=== PATIENT | female | born 1970 | race Caucasian/White ===

== ENCOUNTER → 2020-04-20 09:20 | Outpatient (CLI) | payer MEDICAID, SELFPAY ==
--- NOTE | 2020-04-20 09:25 | RAD_ITS ---
STUDY: X-RAY CHEST REASON FOR EXAM: Female, 49 years old. PATIENT IS STILL SOB. POSITIVE FOR COVID SEVERAL MONTHS AGO. TECHNIQUE: 2 views COMPARISON: None. FINDINGS: The lungs are clear and expanded. There is no demonstrated pleural abnormality. Normal size heart. Normal mediastinum and nayan. Normal visualized pulmonary arteries. Normal visualized aortic arch and descending thoracic aorta. Normal visualized thoracic spine. Normal visualized ribs, clavicles, and shoulders. There is no demonstrated abnormality of the visualized soft tissue structures of the upper abdomen. RAD/Chest PA and Lateral IMPRESSION: Normal x-ray examination of the chest. Electronically Signed: Bea Martinez MD at 20:24 EDT , Service support ,
[2020-04-20 12:29] LABS: Absolute Lymphocyte Count 2.25 X10^3/uL (0.83-4.51); Absolute Neutrophil Count 5.5 X10^3/uL (2.0-7.7); Basophil# 0.06 X10^3/uL; Basophil% 0.7 % (0-1); Eosinophil# 0.12 X10^3/uL; Eosinophils% 1.4 % (0-5); Hematocrit 44.3 % (37-47); Hemoglobin 13.9 g/dL (12.0-15.0); Lymphocyte # 2.25 X10^3/ul (4.0); Lymphocyte % 26.5 % (19-41); Mean Corp Hgb Conc 31.4 g/dL (32-36); Mean Corpuscular Hgb 28.4 pg (27.0-32.0); Mean Corpuscular Volume 90.6 fL (81-99); Mean Platelet Vol. 10.2 fl (6.2-12.0); Monocyte# 0.56 X10^3/uL; Monocyte% 6.6 % (0-10); NRBC Flagged by Analyzer 0 % (0-5); Neutrophil # 5.46 X10^3/uL (2.7-7.7); Neutrophil % 64.4 % (47-70); Platelet Count 337 K/mm3 (150-450); RBC Distribution Width CV 12.7 % (11.6-14.6); RBC Distribution Width SD 41.6 fl (35.1-43.9); Red Blood Count 4.89 M/mm3 (4.2-5.4); White Blood Count 8.5 K/mm3 (4.4-11.0)
[2020-04-20 12:51] LABS: ALB/GLOB Ratio 1.1 RATIO (0.9-2.4); AST(SGOT) 28 U/L (15-37); Alanine Aminotransfer ALT/SGPT 65 U/L (13-56); Alkaline Phosphatase 100 U/L (45-117); Anion Gap 4 (5-15); BUN 12 mg/dL (7-18); BUN/Creat Ratio 15.2 RATIO (10-20); Calcium,Total 9.4 mg/dL (8.5-10.1); Chloride 105 mmol/L (98-107); Creatinine, Serum 0.79 mg/dL (0.55-1.02); EST Glomerular Filtration Rate 82 mL/min (>60); Est Glom Filt Rate - Afr Amer 99 mL/min (>60); Globulin 3.6 g/dL (2.2-4.2); Glucose 99 mg/dL (74-106); Potassium 3.9 mmol/L (3.5-5.1); Protein, Total 7.6 g/dL (6.4-8.2); Sodium Level 139 mmol/L (136-145); T4 Free Direct 0.95 ng/dL (0.76-1.46); Thyroid Stim Hormone (TSH) 1.94 uIU/mL (0.358-3.74)
== END ==
PROVIDERS: PCP Family Medicine; Referring Provider Family Medicine; Visit Provider Family Medicine
DX: U07.1 COVID-19 (principal); I10 Essential (primary) hypertension; E78.5 Hyperlipidemia, unspecified; L65.9 Nonscarring hair loss, unspecified; R06.00 Dyspnea, unspecified
CPT/HCPCS: 36415; 71046; 80053; 84439; 84443; 85025

== ENCOUNTER → 2020-06-17 13:27 | Outpatient (CLI) | payer MEDICAID, SELFPAY ==
[2020-06-17 15:50] LABS: Anion Gap 6 (5-15); BUN 14 mg/dL (7-18); BUN/Creat Ratio 20.7 RATIO (10-20); Calcium,Total 8.9 mg/dL (8.5-10.1); Chloride 104 mmol/L (98-107); Creatinine, Serum 0.68 mg/dL (0.55-1.02); EST Glomerular Filtration Rate 97 mL/min (>60); Est Glom Filt Rate - Afr Amer 118 mL/min (>60); Glucose 103 mg/dL (74-106); Potassium 3.4 mmol/L (3.5-5.1); Sodium Level 138 mmol/L (136-145)
== END ==
PROVIDERS: PCP Family Medicine; Visit Provider Family Medicine
DX: I10 Essential (primary) hypertension (principal)
CPT/HCPCS: 36415; 80048

== ENCOUNTER → 2020-10-28 09:32 | Outpatient (CLI) | payer MEDICAID, SELFPAY ==
[2020-10-28 12:18] LABS: Absolute Lymphocyte Count 2.18 X10^3/uL (0.83-4.51); Basophil# 0.05 X10^3/uL; Basophil% 0.6 % (0-1); Eosinophils% 1.3 % (0-5); Hematocrit 43.2 % (37-47); Hemoglobin 13.4 g/dL (12.0-15.0); Lymphocyte # 2.18 X10^3/ul (4.0); Lymphocyte % 27.7 % (19-41); Mean Corpuscular Volume 90.4 fL (81-99); Mean Platelet Vol. 10.2 fl (6.2-12.0); Monocyte% 6.4 % (0-10); NRBC Flagged by Analyzer 0 % (0-5); Neutrophil # 5.01 X10^3/uL (2.7-7.7); Neutrophil % 63.6 % (47-70); Platelet Count 348 K/mm3 (150-450); RBC Distribution Width CV 12.9 % (11.6-14.6); RBC Distribution Width SD 42.7 fl (35.1-43.9); Red Blood Count 4.78 M/mm3 (4.2-5.4); White Blood Count 7.9 K/mm3 (4.4-11.0)
[2020-10-28 12:30] LABS: Anion Gap 5 (5-15); BUN 22 mg/dL (7-18); BUN/Creat Ratio 27.6 RATIO (10-20); Calcium,Total 9.5 mg/dL (8.5-10.1); Chloride 102 mmol/L (98-107); Cholesterol 305 mg/dL (200); EST Glomerular Filtration Rate 81 mL/min (>60); Est Glom Filt Rate - Afr Amer 98 mL/min (>60); Glucose 98 mg/dL (74-106); High Density Lipoprotein 54 mg/dL; Potassium 3.7 mmol/L (3.5-5.1); Sodium Level 137 mmol/L (136-145); Triglycerides 286 mg/dL; Very Low Density Lipoprotein 57 mg/dL (5-40)
[2020-10-28 13:03] LABS: Hemoglobin A1c 5.4 % (3.8-5.6)
== END ==
PROVIDERS: PCP Family Medicine; Visit Provider Family Medicine
DX: I10 Essential (primary) hypertension (principal); E78.5 Hyperlipidemia, unspecified; R73.01 Impaired fasting glucose
CPT/HCPCS: 36415; 80048; 80061; 83036; 85025

== ENCOUNTER 2021-07-07 19:24 | Inpatient (IN) | payer MEDICAID, SELFPAY ==
[2021-07-07 19:25] VITALS: BP 157/99; PULSE 92; RESP 24; TEMP 36.4; O2SAT 100; BMI 24.7
--- NOTE | 2021-07-07 19:28 | EKG12_ITS ---
Test Reason : CHEST PAIN Blood Pressure : / mmHG Vent. Rate : 080 BPM Atrial Rate : 080 BPM P-R Int : 162 ms QRS Dur : 094 ms QT Int : 402 ms P-R-T Axes : 044 -04 016 degrees QTc Int : 463 ms Normal sinus rhythm Normal ECG Confirmed by BRISA PEARSON, BRENDAN ([id number]), metropolitan editor CLINTON LOTT ([id number]) on 07/10/2021 11:48:17 AM Referred By: FRANCES Confirmed By:BRENDAN LEDEZMA MD
[2021-07-07 19:34] LABS: Absolute Lymphocyte Count 4.12 X10^3/uL (0.83-4.51); Absolute Neutrophil Count 8.4 X10^3/uL (2.0-7.7); Basophil# 0.06 X10^3/uL; Basophil% 0.4 % (0-1); Eosinophil# 0.18 X10^3/uL; Eosinophils% 1.3 % (0-5); Hematocrit 40.4 % (37-47); Hemoglobin 13.1 g/dL (12.0-15.0); Lymphocyte # 4.12 X10^3/ul (0.83-4.51); Lymphocyte % 30.4 % (19-41); Mean Corp Hgb Conc 32.4 g/dL (32-36); Mean Corpuscular Hgb 28.2 pg (27.0-32.0); Mean Corpuscular Volume 86.9 fL (81-99); Mean Platelet Vol. 9.8 fl (6.2-12.0); Monocyte# 0.81 X10^3/uL; NRBC Flagged by Analyzer 0 % (0-5); Neutrophil # 8.35 X10^3/uL (2.7-7.7); Neutrophil % 61.5 % (47-70); Platelet Count 389 K/mm3 (150-450); RBC Distribution Width CV 12.7 % (11.6-14.6); RBC Distribution Width SD 40.5 fl (35.1-43.9); Red Blood Count 4.65 M/mm3 (4.2-5.4); White Blood Count 13.6 K/mm3 (4.4-11.0)
[2021-07-07 19:40] LABS: Prothrombin Time (Protime)PT. 12.1 SECONDS (11.7-14.9)
--- NOTE | 2021-07-07 19:40 | RAD_ITS ---
INDICATION: chest pain EXAMINATION/TECHNIQUE: X-RAY - XR Chest 1 View COMPARISON: 04/20/2020. FINDINGS: The lungs are clear. The cardiomediastinal silhouette is unremarkable. No pleural effusion or pneumothorax. No acute osseous abnormalities. RAD/Chest 1 View (Portable) IMPRESSION: No acute radiographic abnormalities. Electronically Signed: Scott Zavala MD at 20:29 EST Tel , Service support ,
--- NOTE | 2021-07-07 19:46 | ED.VIS.CHEST ---
HPI History of Present Illness Chief Complaint: Chest Pain Narrative Narrative: Patient presents with epigastric substernal chest pain that started a few hours ago. She states she had it a few days ago but it resolved. She has been moving things and holding children. It is the pain that she cannot describe. She states it just hurts her. Sometimes is worse with movement. She denies any nausea or vomiting. No diaphoresis. No shortness of breath. No leg swelling. No other symptoms. Past medical history includes hypertension. No family history of myocardial infarction at an early age. PFSH PFS Home Medications amlodipine 5 mg PO DAILY 07/07/21 [History Last Taken Unknown] lisinopril-hydrochlorothiazide 1 tab PO DAILY 07/07/21 [History Last Taken Unknown] Allergy/AdvReac Type Severity Reaction Status Date / Time strawberry Allergy Hives Verified 07/07/21 19:29 Social History Smoking Status: Never smoker ROS ROS ED ROS Narrative Constitutional: No fever, no chills. HEENT: No sore throat. No neck pain. No loss of vision. No rhinorrhea. Cardiovascular: Positive epigastric to substernal chest pain. No palpitations. No pedal edema. Respiratory: No cough, no shortness of breath. Abdominal: No abdominal pain. No nausea. No vomiting. Genitourinary: No dysuria. No hematuria. Musculoskeletal: No myalgias. No arthralgias. Neurologic: No headaches. No dizziness. No lightheadedness. Skin: No rash. No change in color. Psychiatric: No depression. No anxiety. EXAM Physical Exam Narrative Exam Narrative: Afebrile. Vital signs noted. HEENT: Normocephalic. Atraumatic. PERRL, EOMI. Neck soft and supple. No point tenderness or step off. Cardiovascular: Regular rate and rhythm. No murmurs, rubs, or gallops appreciated. Positive pain with movement of arms and especially torso. No crepitance. Respiratory: No tachypnea. Lungs clear to auscultation bilaterally. Gastrointestinal: Abdomen soft, nontender, with normoactive bowel sounds. No rebound or guarding. Neurological: Awake. Alert. Nonfocal, nonlateralizing. Skin: No rash. Normal color. No pallor. Musculoskeletal: No pedal edema. Full range of motion extremities. Const Vital Signs: 07/07/21 19:25 07/07/21 19:34 07/07/21 19:58 Temperature 97.6 F L Temperature Source Temporal Pulse Rate 92 Respiratory Rate 24 H Blood Pressure 157/99 H Blood Pressure Mean 118 Pulse Ox 100 Oxygen Delivery Method Room Air Nasal Cannula Nasal Cannula Oxygen Flow Rate (L/min) 2 2 07/07/21 22:11 Temperature 97.9 F Temperature Source Temporal Pulse Rate 72 Respiratory Rate 18 Blood Pressure 130/93 H Blood Pressure Mean 105 Pulse Ox 95 Oxygen Delivery Method Room Air Oxygen Flow Rate (L/min) MDM MDM MDM Narrative Medical decision making narrative: Chest pain work-up was pursued. EKG demonstrates normal sinus rhythm at 80 bpm without ectopy or acute ST changes. She will be administered aspirin. Her CBC shows elevated white count of 13.6, hemoglobin 13.1, platelet count 389. Coagulation studies are negative. She has a hypokalemia of 3.1 which was replaced IV. BUN slightly elevated 23. High-sensitivity troponin normal at 19. She did have an elevated D-dimer of 1.3, but CTA shows no evidence of pulmonary embolism. There may be a left lower lobe pneumonia, but she is not showing clinical manifestations of this. She does not have a fever or cough. I will defer antibiotics currently. She does have an elevated lipase above 11,000. LFTs were obtained and are negative. I did obtain an ultrasound of her gallbladder which shows no evidence of gallstones, common bile duct is normal at 6 mm. She did not get any pain relief with a dose of morphine. She was administered Dilaudid 1 mg intravenously and her is resting comfortably. Given her elevated lipase and hypokalemia, she was made n.p.o. it was administered IV fluids. Patient was discussed with hospitalist, Dr. Cloud, who will admit her to the medical surgical floor. She is in stable condition. He did request that step triglycerides be obtained as well. Lab Data Attestation: I reviewed the patient's lab results. Labs: Laboratory Results - last 24 hr 07/07/21 07/07/21 07/07/21 19:27 19:27 19:27 WBC 13.6 H RBC 4.65 Hgb 13.1 Hct 40.4 MCV 86.9 MCH 28.2 MCHC 32.4 RDW Std Deviation 40.5 RDW Coeff of Marti 12.7 Plt Count 389 MPV 9.8 Immature Gran % (Auto) 0.400 Neut % (Auto) 61.5 Lymph % (Auto) 30.4 [place] % (Auto) 6.0 Eos % (Auto) 1.3 Baso % (Auto) 0.4 Absolute Neuts (auto) 8.4 H Absolute Lymphs (auto) 4.12 Nucleated RBC % 0 PT 12.1 INR 1.0 D-Dimer Quant (PE/DVT) Sodium 139 Potassium 3.1 L Chloride 106 Carbon Dioxide 24.0 Anion Gap 9 BUN 23 H Creatinine 0.77 Estim Creat Clear Calc 64.49 Est GFR (MDRD) Af Amer 102 Est GFR (MDRD) Non-Af 84 BUN/Creatinine Ratio 30.0 H Glucose 140 H Calcium 9.6 Total Bilirubin Direct Bilirubin AST ALT Alkaline Phosphatase Troponin I High Sens 19 Total Protein Albumin Globulin Lipase 07/07/21 07/07/21 07/07/21 19:27 19:27 19:27 WBC RBC Hgb Hct MCV MCH MCHC RDW Std Deviation RDW Coeff of Marti Plt Count MPV Immature Gran % (Auto) Neut % (Auto) Lymph % (Auto) [place] % (Auto) Eos % (Auto) Baso % (Auto) Absolute Neuts (auto) Absolute Lymphs (auto) Nucleated RBC % PT INR D-Dimer Quant (PE/DVT) 1.32 H* Sodium Potassium Chloride Carbon Dioxide Anion Gap BUN Creatinine Estim Creat Clear Calc Est GFR (MDRD) Af Amer Est GFR (MDRD) Non-Af BUN/Creatinine Ratio Glucose Calcium Total Bilirubin 0.50 Direct Bilirubin 0.27 AST 55 H ALT 54 Alkaline Phosphatase 102 Troponin I High Sens Total Protein 7.6 Albumin 3.9 Globulin 3.7 Lipase 18006 H Radiography Diagnostic Testing: Clinical Impression(s) from Imaging Studies Chest X-Ray 07/07/21 19:40 IMPRESSION: No acute radiographic abnormalities. Electronically Signed: Scott Zavala MD at 20:29 EST Tel , Service support , Gallbladder Ultrasound 07/07/21 20:36 IMPRESSION: Fatty liver. There is pericholecystic fluid. No gallstones visualized. Electronically Signed: Pacheco Mckeon MD at 21:37 EST , Service support , Chest CTA 07/07/21 21:11 IMPRESSION: 1. No demonstrated pulmonary embolism or arterial dissection. 2. There is a left lower lobe pneumonia. Electronically Signed: Pacheco Mckeon MD at 21:38 EST , Service support , Discharge Plan Dx/Rx/DC Orders Clinical Impression: Acute pancreatitis, Acute hypokalemia, Chest pain Disposition Disposition: Acute Care [facility]
[2021-07-07] MEDS: 0.9% Normal Saline 1,000 ML 1000 ML IV (19:52)
[2021-07-07] MEDS: Aspirin 81 MG TAB.CHEW 324 MG PO (19:52)
[2021-07-07] MEDS: Morphine 4 MG/ML Syringe IV (19:56)
[2021-07-07 20:06] LABS: Anion Gap 9 (5-15); BUN 23 mg/dL (7-18); Calcium,Total 9.6 mg/dL (8.5-10.1); Chloride 106 mmol/L (98-107); Creatinine, Serum 0.77 mg/dL (0.55-1.02); EST Glomerular Filtration Rate 84 mL/min (>60); Est Glom Filt Rate - Afr Amer 102 mL/min (>60); Estimated Creatinine Clearance 64.49 ml/min; Glucose 140 mg/dL (74-106); Potassium 3.1 mmol/L (3.5-5.1); Sodium Level 139 mmol/L (136-145); Troponin-I HS 19 pg/mL (3.0-54.0)
[2021-07-07 20:12] LABS: Lipase 11527 U/L (73-393)
[2021-07-07 20:15] LABS: D-Dimer Quantitative (DVT/PE) 1.32 FEU/ug/m (0.27-0.49)
--- NOTE | 2021-07-07 20:36 | US_ITS ---
STUDY: ABDOMINAL ULTRASOUND - RIGHT UPPER QUADRANT REASON FOR VISIT: Female, 51 years old. ABDOMEN PAIN SEVERE ABD PAIN WITH NAUSEA TECHNIQUE: Ultrasound evaluation of the right upper quadrant was performed with real-time and static domínguez-scale imaging. TECHNICAL QUALITY: Adequate. COMPARISON: None. FINDINGS: Liver: There is increased echogenicity consistent with fatty infiltration. The bile ducts are within normal limits. There is hepatic color flow. The direction of portal flow is hepatopetal. There is no demonstrated mass lesion. Gallbladder: Normal distended gallbladder. The gallbladder wall measures 3 mm. There is a negative sonographic Umana''s sign. There is pericholecystic fluid. There are no gallstones. Common Bile Duct (C.B.D.): The common bile duct measures ( in mm): 6 Pancreas: Normal size of the head, body of the pancreas. There is increased echogenicity of the pancreas. There is no demonstrated pancreatic mass or cyst. Right Kidney: Normal size of the right kidney. The right kidney measures 10.3 cm. . Normal renal cortex. There is no demonstrated renal mass or cyst. There is no right hydronephrosis. Aorta: It is not visualized. There is too much overlying bowel gas. . US/Gallbladder IMPRESSION: Fatty liver. There is pericholecystic fluid. No gallstones visualized. Electronically Signed: Pacheco Mckeon MD at 21:37 EST , Service support ,
[2021-07-07] MEDS: HYDROmorphone 1 MG/ML Syringe IV (20:40)
--- NOTE | 2021-07-07 21:11 | CT_ITS ---
EXAM: CT ANGIOGRAPHY CHEST WITHOUT AND WITH INTRAVENOUS CONTRAST CLINICAL INDICATION: elevated D-dimer TECHNIQUE: Helically acquired angiography images were obtained of the chest without and with intravenous contrast. This CT exam was performed using one or more of the following dose reduction techniques: automated exposure control, adjustment of the mA and/or kV according to patient size, and/or use of iterative reconstruction technique. This report was created using [employer] report generation technology. MIP reconstructed images were created and reviewed. CONTRAST: IV 100mL Isovue-370 COMPARISON: None. FINDINGS: PULMONARY ARTERIES: No demonstrated pulmonary embolism or arterial dissection. AORTA: Unremarkable. Normal in caliber. No evidence of dissection. GREAT VESSELS OF AORTIC ARCH: Unremarkable. Normal in caliber. No evidence of dissection. LUNGS AND PLEURAL SPACES: There is a left lower lobe pneumonia. No mass. No pleural effusion or thickening. HEART: Unremarkable. Heart size is normal. No pericardial effusion. No signs of right heart strain, ratio of right ventricle to left ventricle measures less than 1. MEDIASTINUM: Unremarkable. No mediastinal or hilar adenopathy. Esophagus is unremarkable. No hiatal hernia. THYROID: Unremarkable. No thyroid lesions. BONES/JOINTS: There are degenerative findings of the thoracic spine. No suspicious lytic or blastic abnormality. CT/CTA Chest W/WO Contrast IMPRESSION: 1. No demonstrated pulmonary embolism or arterial dissection. 2. There is a left lower lobe pneumonia. Electronically Signed: Pacheco Mckeon MD at 21:38 EST , Service support ,
[2021-07-07 21:43] LABS: AST(SGOT) 55 U/L (15-37); Alanine Aminotransfer ALT/SGPT 54 U/L (13-56); Albumin, Serum 3.9 g/dL (3.2-5.0); Alkaline Phosphatase 102 U/L (45-117); Bilirubin, Direct 0.27 mg/dL (0.00-0.30); Globulin 3.7 g/dL (2.2-4.2); Protein, Total 7.6 g/dL (6.4-8.2)
[2021-07-07] MEDS: Potassium Chloride 10mEq/100mL 10 MEQ/100 ML IV.SOLN. 100 MEQ IV BOLUS ×2 (22:07→23:11)
[2021-07-07 22:11] VITALS: BP 130/93; PULSE 72; RESP 18; TEMP 36.6; O2SAT 95
--- NOTE | 2021-07-07 22:27 | HP.PCM.HOS_ITS ---
HPI - General General Date of Admission: 07/07/21 HPI Narrative NAVEED LEON, is a 51 F with a significant history of hypertension who presents to the emergency department with progressively worsening epigastric pain that started 2 days before presentation. Epigastric pain radiated to her lower chest and into her middle back. She described the pain as sharpness and tightness. Her symptoms aggravates with bending over and walking. She denies any ameliorating factors to the pain. She has nausea without vomiting. She denies any shortness of breath; chills or fever. Of note patient was at a bar 4 days before her symptoms started and she took 4 glasses of sangria drinks. She reported that typically she hardly drinks. [facility] Medical History HTN (hypertension) Home Medications amlodipine 5 mg PO DAILY 07/07/21 [History Last Taken Unknown] lisinopril-hydrochlorothiazide 1 tab PO DAILY 07/07/21 [History Last Taken U nknown] Allergy/AdvReac Type Severity Reaction Status Date / Time strawberry Allergy Hives Verified 07/07/21 19:29 Family History Other Breast cancer Hypertension Surgical History H/O breast biopsy Social History Smoking Status: Never smoker ROS ROS Narrative Constitutional: Denies fever, chills, fatigue, anorexia and change in weight Eyes: Denies blurry vision, change in eye color, change in vision, discharge from eye(s), double vision, erythema, eye pain, loss of vision or other HEENT: Denies abnormal hearing, dysphagia, ear pain, epistaxis, headache(s), hearing loss, nasal congestion, nasal discharge, post nasal drip, sinus pressure, sore throat or other Cardiovascular: Reports chest pain. Denies palpitations. Denies dyspnea on exertion, orthopnea and paroxysmal nocturnal dyspnea Respiratory/Chest: Denies cough, excessive phlegm production, shortness of breath with exertion and wheezing Gastrointestinal: Reports epigastric pain and nausea. Denies coffee ground emesis, constipation, diarrhea, dyspepsia, hematemesis, hematochezia, loose stools, melena, vomiting or other Genitourinary: Denies burning urination, difficulty urinating, dysuria, hematuria, nocturia, urinary frequency, urinary hesitancy, urinary incontinence, urinary urgency or other Musculoskeletal: Reports zakiya pain. Denies arthralgias, joint pain, joint stiffness, joint swelling, myalgias, neck pain or other Neurologic: Denies abnormal gait, abnormal speech, confusion, disequilibrium, dizziness, focal weakness, headache(s), numbness, paresthesias, seizure-like activity, seizures, syncope, tingling, tremor(s) or other Psychiatric: Denies anxiety, depression, homicidal ideation, suicidal ideation or other Endocrinology: Denies change in body appearance, cold intolerance, excessive sweating, heat intolerance, polydipsia, polyuria or other Hematologic/Lymphatic: Denies anemia, easy bleeding, easy bruising, lymphadenopathy or other Integumentary: Denies rashes Allergic/Immunologic: Denies rhinitis, hives, eczema, asthma or other Vital Signs Vital Signs Vital Signs: 07/07/21 19:25 07/07/21 19:34 07/07/21 19:58 Temperature 97.6 F L Temperature Source Temporal Pulse Rate 92 Respiratory Rate 24 H Blood Pressure 157/99 H Blood Pressure Mean 118 Pulse Ox 100 Oxygen Delivery Method Room Air Nasal Cannula Nasal Cannula Oxygen Flow Rate (L/min) 2 2 07/07/21 22:11 Temperature 97.9 F Temperature Source Temporal Pulse Rate 72 Respiratory Rate 18 Blood Pressure 130/93 H Blood Pressure Mean 105 Pulse Ox 95 Oxygen Delivery Method Room Air Oxygen Flow Rate (L/min) Weight Weight: 59.4 kg Body Mass Index (BMI) 24.7 Physical Exam Narrative Physical exam: General: Patient looks her stated age. Patient in a position from pain. Head: Normocephalic, atraumatic, no tenderness Eyes: PERRLA, EOMI ENT, no trauma, moist mucous membranes, no rhinorrhea Neck: Nontender, full range of motion, no spinal tenderness, deformities, step- off CVS: Regular rate and rhythm. S1-S2 present. No murmur, gallop or rub. Respiratory : clear to auscultation bilaterally, chest wall nontender, no wheezing Abdomen: Soft, tender, nondistended, normal bowel sounds, no masses : Deferred Back: Nontender, no CVA tenderness, no midline spinal tenderness, deformities, step-offs Extremities: Nontender full range of motion, no trauma Skin: Normal color, no trauma, abrasions Neuro: Alert, oriented, cranial nerves II through XII grossly intact. Psychiatry: Normal mood. Normal affect. Not depressed. Not anxious. Results Lab / Micro Data Result Diagrams: 07/07/21 19:27 07/07/21 19:27 Labs: Laboratory Results - last 24 hr 07/07/21 19:27: WBC 13.6 H, RBC 4.65, Hgb 13.1, Hct 40.4, MCV 86.9, MCH 28.2, MCHC 32.4, RDW Std Deviation 40.5, RDW Coeff of Marti 12.7, Plt Count 389, MPV 9.8, Immature Gran % (Auto) 0.400, Neut % (Auto) 61.5, Lymph % (Auto) 30.4, [place] % (Auto) 6.0, Eos % (Auto) 1.3, Baso % (Auto) 0.4, Absolute Neuts (auto) 8.4 H, Absolute Lymphs (auto) 4.12, Nucleated RBC % 0 07/07/21 19:27: PT 12.1, INR 1.0 07/07/21 19:27: Sodium 139, Potassium 3.1 L, Chloride 106, Carbon Dioxide 24.0, Anion Gap 9, BUN 23 H, Creatinine 0.77, Estim Creat Clear Calc 64.49, Est GFR (MDRD) Af Amer 102, Est GFR (MDRD) Non-Af 84, BUN/Creatinine Ratio 30.0 H, Glucose 140 H, Calcium 9.6, Troponin I High Sens 19 07/07/21 19:27: D-Dimer Quant (PE/DVT) 1.32 H* 07/07/21 19:27: Lipase 00598 H 07/07/21 19:27: Total Bilirubin 0.50, Direct Bilirubin 0.27, AST 55 H, ALT 54, Alkaline Phosphatase 102, Total Protein 7.6, Albumin 3.9, Globulin 3.7 Micro: Microbiology 07/07/21 21:50 Nasal Secretion SARS-CoV-2 Antigen (Rapid) - Final Radiology Impression Chest X-Ray 07/07/21 19:40 IMPRESSION: No acute radiographic abnormalities. Electronically Signed: Scott Zavala MD at 20:29 EST Tel , Service support , Gallbladder Ultrasound 07/07/21 20:36 IMPRESSION: Fatty liver. There is pericholecystic fluid. No gallstones visualized. Electronically Signed: Pacheco Mckeon MD at 21:37 EST , Service support , Chest CTA 07/07/21 21:11 IMPRESSION: 1. No demonstrated pulmonary embolism or arterial dissection. 2. There is a left lower lobe pneumonia. Electronically Signed: Pacheco Mckeon MD at 21:38 EST , Service support , Assessment & Plan Assessment/Plan (1) Acute pancreatitis: QUALIFIERS: Acute pancreatitis complication: unspecified Pancreatitis type: alcohol induced Qualified Code(s): K85.20 - Alcohol induced acute pancreatitis without necrosis or infection (2) Acute hypokalemia: (3) Abnormal CT scan of lung: PLAN: Acute pancreatitis Review of Emergency department labs showed lipase of 11,527. Ultrasound of gallbladder with pericholecystic fluid but with no gallstones or sonographic Umana sign. Likely alcoholic pancreatitis. Discussed with Emergency Department to check triglyceride levels in the past patient have some mild elevation in triglycerides. White count of 13.6. Trend CBC and CMP Placed on lactated Ringer's to 250 mL's per hour. She received patient to start patient on clear liquids. Dilaudid as needed and Zofran as needed ordered. If symptoms does not improve consider discussion with general surgery. Shared decision with patient to start her on clear liquids. Acute hypokalemia Potassium of 3.1 presentation. Received IV potassium placement emergency department. Trend CMP Abnormal CTA chest. D-dimer the emergency department was elevated at 1.32. Follow-up CTA was done at the emergency department. Follow-up CTA independently interpreted showed moderate left lower lobe opacities; and mild right lower lobe infiltrate. Patient has no fever, shortness of breath or cough. Patient has epigastric pain with deep breathing. We will hold off antibiotics at this time. Most likely patient is sent for pancreatitis and not pneumonia. We will trend lipase for confirmation. If pneumonia symptoms develop consider start the patient on antibiotics. Hypertension Blood pressure is not within goal Lisinopril and hydrochlorothiazide. Trend blood pressure and adjust blood pressure medications. DVT prophylaxis: SCD ordered Charges/Coding Visit Charges Inpatient E&M: 48693 Init Hosp L3
[2021-07-07 22:39] LABS: Triglycerides 178 mg/dL
[2021-07-07 23:01] VITALS: BMI 24.6
[2021-07-07 23:03] VITALS: BP 146/82; PULSE 73; RESP 16; TEMP 35.4; O2SAT 98
[2021-07-07] MEDS: Lactated Ringers 1,000 ML 250 ML IV (23:29)
[2021-07-07] MEDS: HYDROmorphone 0.5 MG/0.5 ML SYRINGE IV (23:31)
[2021-07-07] MEDS: Ondansetron 4 MG/2 ML Vial IV (23:31)
--- NOTE | 2021-07-07 23:47 | PCS.PANDOC ---
PANDEMIC DOCUMENTATION INITIATED: Date: 04/10/2021 Time: 190
[2021-07-08] MEDS: Potassium Chloride 10mEq/100mL 10 MEQ/100 ML IV.SOLN. 100 MEQ IV BOLUS ×2 (00:08→01:07)
[2021-07-08 03:30] VITALS: BP 157/90; PULSE 78; RESP 18; TEMP 36.1; O2SAT 93
[2021-07-08] MEDS: Lactated Ringers 1,000 ML 250 ML IV ×6 (03:35→23:53)
[2021-07-08] MEDS: HYDROmorphone 0.5 MG/0.5 ML SYRINGE IV ×4 (03:35→23:21)
[2021-07-08] MEDS: proCHLORPERazine 10 MG/2 ML Vial 5 MG IV (03:59)
[2021-07-08 06:12] LABS: Absolute Lymphocyte Count 0.51 X10^3/uL (0.83-4.51); Absolute Neutrophil Count 19.8 X10^3/uL (2.0-7.7); Basophil# 0.04 X10^3/uL; Basophil% 0.2 % (0-1); Eosinophil# 0.01 X10^3/uL; Hematocrit 41.4 % (37-47); Hemoglobin 13.8 g/dL (12.0-15.0); Lymphocyte # 0.51 X10^3/ul (0.83-4.51); Lymphocyte % 2.4 % (19-41); Mean Corp Hgb Conc 33.3 g/dL (32-36); Mean Corpuscular Hgb 29.2 pg (27.0-32.0); Mean Corpuscular Volume 87.7 fL (81-99); Mean Platelet Vol. 9.5 fl (6.2-12.0); Monocyte# 0.67 X10^3/uL; Monocyte% 3.2 % (0-10); NRBC Flagged by Analyzer 0 % (0-5); Neutrophil # 19.81 X10^3/uL (2.7-7.7); Neutrophil % 93.5 % (47-70); POSITIVE DIFFERENTIAL YES; Platelet Count 260 K/mm3 (150-450); RBC Distribution Width CV 12.7 % (11.6-14.6); RBC Distribution Width SD 40.9 fl (35.1-43.9); Red Blood Count 4.72 M/mm3 (4.2-5.4); White Blood Count 21.2 K/mm3 (4.4-11.0)
[2021-07-08 06:14] LABS: Differential Indicated SCAN CRITERIA MET
[2021-07-08 06:23] LABS: Differential Comment SCANNED
[2021-07-08 06:54] LABS: AST(SGOT) 1343 U/L (15-37); Alanine Aminotransfer ALT/SGPT 813 U/L (13-56); Albumin, Serum 3.5 g/dL (3.2-5.0); Alkaline Phosphatase 156 U/L (45-117); Anion Gap 6 (5-15); BUN 15 mg/dL (7-18); BUN/Creat Ratio 20.5 RATIO (10-20); Calcium,Total 8.6 mg/dL (8.5-10.1); Chloride 104 mmol/L (98-107); Creatinine, Serum 0.73 mg/dL (0.55-1.02); EST Glomerular Filtration Rate 89 mL/min (>60); Est Glom Filt Rate - Afr Amer 107 mL/min (>60); Estimated Creatinine Clearance 68.03 ml/min; Globulin 3.4 g/dL (2.2-4.2); Glucose 176 mg/dL (74-106); Lipase 12313 U/L (73-393); Potassium 3.6 mmol/L (3.5-5.1); Protein, Total 6.9 g/dL (6.4-8.2); Sodium Level 137 mmol/L (136-145)
[2021-07-08 08:24] VITALS: BP 159/91; PULSE 100; RESP 16; TEMP 36.5; O2SAT 99
[2021-07-08] MEDS: Enoxaparin 40 MG/0.4 ML Syringe SC (09:40)
[2021-07-08] MEDS: amLODIPine 10 MG Tablet PO (09:42)
--- NOTE | 2021-07-08 11:38 | CASEMGMT ---
RN into pt room for assessment. Pt lying in bed with eyes closed and sig other Celio at bedside. Celio states pt has been sleeping since he arrived as she is getting pain medication. Pt denied need to complete assessment. Per Celio, he lives with pt for the last 11 years and she does not have any needs at home. Explained to Celio that if patient wakes and is agreeable to assessment to put admission nurse light and ask for RN CM. He verbalized understanding.
[2021-07-08 12:03] VITALS: BP 123/67; PULSE 86; RESP 16; TEMP 37; O2SAT 97
--- NOTE | 2021-07-08 12:42 | PCM.PN.HOSP ---
Documented by User: Paramjit HYDE 07/08/21 13:04 Subjective Subjective Patient is a 51-year-old female comfortably resting in bed, alert and oriented x3. Reports consistent abdominal pain not resolve. Denies development of any new symptoms overnight. Does appear in mild distress due to her abdominal pain. Objective Data Objective Data Vital Signs: Vital Signs Temp Pulse Resp BP Pulse Ox 98.6 F 86 16 123/67 H 97 07/08/21 12:03 07/08/21 12:03 07/08/21 12:03 07/08/21 12:03 07/08/21 12:03 Oxygen Flow Rate (L/min) 2 Oxygen Delivery Method Room Air Weight: 130 lb 4.691 oz Body Mass Index (BMI) 24.6 Intake & Output: Intake and Output for Last 24 Hours 07/06/21 07/07/21 07/08/21 23:59 23:59 23:59 Intake Total 1350 / 1350 3797.50 / 3797.50 Balance 1350 / 1350 3797.50 / 3797.50 Lab / Micro Data Result Diagrams: 07/08/21 06:00 07/08/21 06:00 Labs: Laboratory Results - last 24 hr 07/07/21 19:27: WBC 13.6 H, RBC 4.65, Hgb 13.1, Hct 40.4, MCV 86.9, MCH 28.2, MCHC 32.4, RDW Std Deviation 40.5, RDW Coeff of Marti 12.7, Plt Count 389, MPV 9.8, Immature Gran % (Auto) 0.400, Neut % (Auto) 61.5, Lymph % (Auto) 30.4, [place] % (Auto) 6.0, Eos % (Auto) 1.3, Baso % (Auto) 0.4, Absolute Neuts (auto) 8.4 H, Absolute Lymphs (auto) 4.12, Nucleated RBC % 0 07/07/21 19:27: PT 12.1, INR 1.0 07/07/21 19:27: Sodium 139, Potassium 3.1 L, Chloride 106, Carbon Dioxide 24.0, Anion Gap 9, BUN 23 H, Creatinine 0.77, Estim Creat Clear Calc 64.49, Est GFR (MDRD) Af Amer 102, Est GFR (MDRD) Non-Af 84, BUN/Creatinine Ratio 30.0 H, Glucose 140 H, Calcium 9.6, Troponin I High Sens 19 07/07/21 19:27: D-Dimer Quant (PE/DVT) 1.32 H* 07/07/21 19:27: Lipase 64212 H 07/07/21 19:27: Total Bilirubin 0.50, Direct Bilirubin 0.27, AST 55 H, ALT 54, Alkaline Phosphatase 102, Total Protein 7.6, Albumin 3.9, Globulin 3.7 07/07/21 19:27: Triglycerides 178 07/08/21 06:00: WBC 21.2 H, RBC 4.72, Hgb 13.8, Hct 41.4, MCV 87.7, MCH 29.2, MCHC 33.3, RDW Std Deviation 40.9, RDW Coeff of Marti 12.7, Plt Count 260, MPV 9.5, Immature Gran % (Auto) 0.700, Neut % (Auto) 93.5 H, Lymph % (Auto) 2.4 L, [place] % (Auto) 3.2, Eos % (Auto) 0.0, Baso % (Auto) 0.2, Absolute Neuts (auto) 19.8 H, Absolute Lymphs (auto) 0.51 L, Nucleated RBC % 0, Differential Comment SCANNED 07/08/21 06:00: Sodium 137, Potassium 3.6, Chloride 104, Carbon Dioxide 27.0, Anion Gap 6, BUN 15, Creatinine 0.73, Estim Creat Clear Calc 68.03, Est GFR (MDRD) Af Amer 107, Est GFR (MDRD) Non-Af 89, BUN/Creatinine Ratio 20.5 H, Glucose 176 H, Calcium 8.6, Total Bilirubin 2.80 H, AST 1343 H, ALT 813 H, Alkaline Phosphatase 156 H, Total Protein 6.9, Albumin 3.5, Globulin 3.4, Albumin/Globulin Ratio 1.0, Lipase 50813 H Micro: Microbiology 07/07/21 21:50 Nasal Secretion SARS-CoV-2 Antigen (Rapid) - Final Radiography Diagnostic Testing: Radiology Impression Chest X-Ray 07/07/21 19:40 IMPRESSION: No acute radiographic abnormalities. Electronically Signed: Scott Zavala MD at 20:29 EST Tel , Service support , Gallbladder Ultrasound 07/07/21 20:36 IMPRESSION: Fatty liver. There is pericholecystic fluid. No gallstones visualized. Electronically Signed: Pacheco Mckeon MD at 21:37 EST , Service support , Chest CTA 07/07/21 21:11 IMPRESSION: 1. No demonstrated pulmonary embolism or arterial dissection. 2. There is a left lower lobe pneumonia. Electronically Signed: Pacheco Mckeon MD at 21:38 EST , Service support , Physical Exam Const alert and oriented x3 HEENT head/scalp atraumatic, moist oral mucous membranes and oropharynx normal Head and Scalp: normocephalic Eyes PERRL, EOMs intact bilaterally and conjunctivae normal Neck no lymphadenopathy, supple and no JVD Resp normal respiratory effort, no retractions, no use of accessory muscles and clear to auscultation bilaterally Cardio regular rate, regular rhythm, no murmurs and no JVD GI normal to inspection, nondistended, normoactive bowel sounds, soft to palpation and non-tender Extremity normal to inspection, full ROM and no clubbing, cyanosis or edema Skin no rashes or lesions noted, no wounds, skin turgor normal and no jaundice Neuro CN's II-XII intact bilaterally Psych affect normal Assessment & Plan Assessment/Plan (1) Acute pancreatitis: QUALIFIERS: Acute pancreatitis complication: unspecified Pancreatitis type: alcohol induced Qualified Code(s): K85.20 - Alcohol induced acute pancreatitis without necrosis or infection (2) Acute hypokalemia: (3) Abnormal CT scan of lung: PLAN: Day 1 Discharge planning: Patient to discharge home when medically ready. 1) acute pancreatitis Patient still with ongoing abdominal pain that is radiating to the back. Patient reports that pain is responsive to current pain regimen. Gallbladder ultrasound demonstrated fatty liver with pericholecystic fluid, no gallstones were seen on ultrasound. Patient reports only mild drinking on occasion, says that she drinks less than 10 drinks per month. Patient does take lisinopril/hydrochlorothiazide for blood pressure, which could be exacerbating her pancreatitis. Lipase was 11,500 on admission, 12,300 this morning. Current plan is to continue fluids and pain medications, continue PPI, when pain has subsided diet will be advanced to clears. If symptoms do not improve will consider general surgery or gastrointestinal consult. 2) acute hypokalemia Resolved, currently 3.6, will continue to monitor BMP. Continue lactated Ringer's. 3) abnormal CTA of the chest D-dimer elevated on admission, chest CTA did not demonstrate any evidence of pulmonary embolism or arterial dissection. 4) HTN Stable, continue Norvasc, hold lisinopril/hydrochlorothiazide. As needed hydralazine ordered. DVT prophylaxis -Lovenox Patient seen by Paramjit Last PA-C, under the supervision of Dr. Plascencia. Documented by User: Dr. Leigh Plascencia DO 07/08/21 16:46 Subjective Subjective This patient was seen in conjunction with MARY ELLEN Patel. The following is a representation my independent history and physical exam. Please see below for any addendum the above. Patient states her pain is well controlled and she is feeling a little bit better however she is regularly using pain medication. She is urinating quite well and not having issues. She is not having any current nausea but she states her abdomen does remain tender. Her back pain has improved some. She denies any regular alcohol use. Objective Data Lab / Micro Data Result Diagrams: 07/08/21 06:00 07/08/21 06:00 Physical Exam Const alert, oriented x3, no apparent distress and average body habitus Constitutional Narrative: Middle-aged white female lying in right side-lying, appears mildly uncomfortable but nontoxic, very pleasant Exam Limitations: no limitations HEENT head/scalp atraumatic and moist oral mucous membranes Head and Scalp: normocephalic Resp normal respiratory effort, no retractions, no use of accessory muscles and clear to auscultation bilaterally Auscultation: Negative for crackles, rales, rhonchi or wheezes Cardio regular rate, regular rhythm, S1 normal heart sound, S2 normal heart sound, no murmurs, no rub, no gallops, no clicks and no JVD GI soft to palpation and non-distended GI Narrative: Significant tenderness in the epigastrium and bilateral upper quadrants left greater than right, bowel sounds are normal Palpation: tender and guarding Extremity normal to inspection and no clubbing, cyanosis or edema Peripheral Pulses: Yes pulses 2+ throughout Neuro oriented x3, moves all extremities and no focal motor deficits Sensorium / Orientation: awake and alert Speech: speech normal Assessment & Plan Assessment/Plan (1) Acute pancreatitis: QUALIFIERS: Acute pancreatitis complication: unspecified Pancreatitis type: alcohol induced Qualified Code(s): K85.20 - Alcohol induced acute pancreatitis without necrosis or infection (2) Acute hypokalemia: (3) Abnormal CT scan of lung: PLAN: Assessment: Acute pancreatitis Acute hypokalemia-resolved Abnormal CTA of the chest Hypertension Leukocytosis Elevated D-dimer Transaminitis Plan: -Initially the thought was that this may be related to her medications that she is on lisinopril and hydrochlorothiazide which are medications that can induce pancreatitis but with review of her lab data from this morning it appears she has had transaminitis and hyperbilirubinemia that was not present on admission--> with these findings I am more suspicious of gallstone related pancreatitis -Consult GI in case the patient needs an ERCP as MRCP is not available at this time--> MRI coil was broken will not holli placed until next week -Continue IV fluids and pain medication -Suspect leukocytosis is reactive--> continue to monitor and no need for antibiotics at this time -It appears her left lower lobe abnormalities on CTA may be more related to scarring versus atelectasis and not infiltrate as the patient has no signs or symptoms of pneumonia -She is to remain n.p.o. at this time -I did discuss the case with Dr. Little from gastroenterology Charges/Coding Visit Charges Inpatient E&M: 19981 Subs Hosp L2
[2021-07-08 14:42] VITALS: BP 159/93; PULSE 119; RESP 16; TEMP 37.2; O2SAT 95
[2021-07-08 20:25] VITALS: BP 133/84; PULSE 104; RESP 18; TEMP 37.7; O2SAT 92
[2021-07-08 22:47] VITALS: BP 143/69; PULSE 96; RESP 18; TEMP 37.4; O2SAT 96
--- NOTE | 2021-07-08 23:04 | PCM.PN.BLA ---
Progress Note Patient with left lower lobe opacity found on CT on presentation. On presentation patient was not hypoxic. Now, patient's oxygen saturation is 89 to 90% on room air and she is requiring supplemental oxygen. Nurse reported patient is short of breath.. Of note patient has been admitted for pancreatitis unlikely secondary to gallstones since her liver enzymes and bilirubin has increased. Will start patient on Zosyn. Will check streptococcus urine antigen and Legionella urine antigen. Acapella and incentive spirometer ordered.
[2021-07-09] VITALS (9 sets, daily range): BP systolic 116–160; BP diastolic 67–88; PULSE 89–114; RESP 16–18; TEMP 37–37.7; O2SAT 88–94
[2021-07-09] MEDS: Lactated Ringers 1,000 ML 250 ML IV ×4 (03:56→16:24)
[2021-07-09 08:04] LABS: Absolute Lymphocyte Count 1.05 X10^3/uL (0.83-4.51); Absolute Neutrophil Count 13.5 X10^3/uL (2.0-7.7); Basophil# 0.03 X10^3/uL; Basophil% 0.2 % (0-1); Hematocrit 33.8 % (37-47); Hemoglobin 11.2 g/dL (12.0-15.0); Lymphocyte # 1.05 X10^3/ul (0.83-4.51); Lymphocyte % 6.8 % (19-41); Mean Corp Hgb Conc 33.1 g/dL (32-36); Mean Corpuscular Hgb 28.6 pg (27.0-32.0); Mean Corpuscular Volume 86.2 fL (81-99); Mean Platelet Vol. 9.8 fl (6.2-12.0); Monocyte# 0.67 X10^3/uL; Monocyte% 4.4 % (0-10); NRBC Flagged by Analyzer 0 % (0-5); Neutrophil # 13.52 X10^3/uL (2.7-7.7); Neutrophil % 87.9 % (47-70); Platelet Count 172 K/mm3 (150-450); RBC Distribution Width CV 13.4 % (11.6-14.6); RBC Distribution Width SD 41.8 fl (35.1-43.9); Red Blood Count 3.92 M/mm3 (4.2-5.4); White Blood Count 15.4 K/mm3 (4.4-11.0)
[2021-07-09 08:26] LABS: ALB/GLOB Ratio 0.8 RATIO (0.9-2.4); AST(SGOT) 707 U/L (15-37); Alanine Aminotransfer ALT/SGPT 999 U/L (13-56); Albumin, Serum 2.3 g/dL (3.2-5.0); Alkaline Phosphatase 156 U/L (45-117); Anion Gap 7 (5-15); BUN 14 mg/dL (7-18); BUN/Creat Ratio 22.1 RATIO (10-20); Chloride 102 mmol/L (98-107); Creatinine, Serum 0.63 mg/dL (0.55-1.02); EST Glomerular Filtration Rate 105 mL/min (>60); Est Glom Filt Rate - Afr Amer 127 mL/min (>60); Estimated Creatinine Clearance 78.82 ml/min; Glucose 97 mg/dL (74-106); Potassium 3.1 mmol/L (3.5-5.1); Protein, Total 5.3 g/dL (6.4-8.2); Sodium Level 136 mmol/L (136-145)
[2021-07-09] MEDS: Potassium Chloride 10mEq/100mL 10 MEQ/100 ML IV.SOLN. 100 MEQ IV BOLUS ×4 (09:33→12:41)
[2021-07-09] MEDS: Enoxaparin 40 MG/0.4 ML Syringe SC (10:37)
[2021-07-09] MEDS: amLODIPine 10 MG Tablet PO (10:37)
[2021-07-09] MEDS: Lisinopril 10 MG Tablet PO (10:38)
[2021-07-09] MEDS: Ondansetron 4 MG/2 ML Vial IV (11:30)
[2021-07-09] MEDS: HYDROmorphone 0.5 MG/0.5 ML SYRINGE IV (11:30)
[2021-07-09] MEDS: 0.9% Saline Lock 10 ML Syringe IV (11:30)
--- NOTE | 2021-07-09 12:01 | PCM.PN.HOSP ---
Documented by User: Paramjit HYDE 07/09/21 12:13 Subjective Subjective Patient is a 51-year-old female lying in bed, alert and orient x3. Patient reports that abdominal pain has significantly improved from yesterday. Patient also reports that her nausea and diarrhea are stable and currently controlled. Denies development of any new symptoms overnight. Does not appear in acute distress. Objective Data Objective Data Vital Signs: Vital Signs Temp Pulse Resp BP Pulse Ox 98.8 F 94 16 123/72 H 94 07/09/21 11:36 07/09/21 11:36 07/09/21 11:36 07/09/21 11:36 07/09/21 11:36 Oxygen Flow Rate (L/min) 2 Oxygen Delivery Method Nasal Cannula Weight: 130 lb 4.691 oz Body Mass Index (BMI) 24.6 Intake & Output: Intake and Output for Last 24 Hours 07/07/21 07/08/21 07/09/21 23:59 23:59 23:59 Intake Total 1350 / 1350 6831.33 / 6831.33 2532.33 / 2532.33 Balance 1350 / 1350 6831.33 / 6831.33 2532.33 / 2532.33 Lab / Micro Data Result Diagrams: 07/09/21 07:35 07/09/21 07:35 Labs: Laboratory Results - last 24 hr 07/09/21 07:35: WBC 15.4 H, RBC 3.92 L, Hgb 11.2 L, Hct 33.8 L, MCV 86.2, MCH 28.6, MCHC 33.1, RDW Std Deviation 41.8, RDW Coeff of Marti 13.4, Plt Count 172, MPV 9.8, Immature Gran % (Auto) 0.700, Neut % (Auto) 87.9 H, Lymph % (Auto) 6.8 L, [place] % (Auto) 4.4, Eos % (Auto) 0.0, Baso % (Auto) 0.2, Absolute Neuts (auto) 13.5 H, Absolute Lymphs (auto) 1.05, Nucleated RBC % 0 07/09/21 07:35: Sodium 136, Potassium 3.1 L, Chloride 102, Carbon Dioxide 27.0, Anion Gap 7, BUN 14, Creatinine 0.63, Estim Creat Clear Calc 78.82, Est GFR (MDRD) Af Amer 127, Est GFR (MDRD) Non-Af 105, BUN/Creatinine Ratio 22.1 H, Glucose 97, Calcium 8.0 L, Total Bilirubin 1.50 H, AST 707 H, ALT 999 H, Alkaline Phosphatase 156 H, Total Protein 5.3 L, Albumin 2.3 L, Globulin 3.0, Albumin/Globulin Ratio 0.8 L Micro: Microbiology 07/08/21 23:30 Interface Orders Streptococcus pneumoniae Antigen (M - Final 07/08/21 23:30 Interface Orders Legionella Antigen - Final 07/07/21 21:50 Nasal Secretion SARS-CoV-2 Antigen (Rapid) - Final Physical Exam Const alert, oriented x3 and no apparent distress HEENT head/scalp atraumatic and moist oral mucous membranes Head and Scalp: normocephalic Eyes PERRL, EOMs intact bilaterally and conjunctivae normal Neck no lymphadenopathy, supple and no JVD Resp normal respiratory effort, no retractions, no use of accessory muscles and clear to auscultation bilaterally Cardio regular rate, regular rhythm, no murmurs and no JVD GI normal to inspection, nondistended, normoactive bowel sounds and soft to palpation Palpation: tender other (Mildly tender, improved from yesterday.) Extremity normal to inspection, full ROM and no clubbing, cyanosis or edema Skin no rashes or lesions noted, no wounds, skin turgor normal and no jaundice Neuro CN's II-XII intact bilaterally Psych affect normal Assessment & Plan Assessment/Plan (1) Acute pancreatitis: QUALIFIERS: Acute pancreatitis complication: unspecified Pancreatitis type: alcohol induced Qualified Code(s): K85.20 - Alcohol induced acute pancreatitis without necrosis or infection (2) Acute hypokalemia: (3) Abnormal CT scan of lung: PLAN: Day 2 Discharge planning: Patient to discharge home when medically ready. 1) acute pancreatitis Patient reports improvement in abdominal pain from yesterday. Patient also reports that nausea and diarrhea are currently controlled. Liver enzymes improved from admission. General surgery was consulted for possible ERCP, although no gall stones were observed on ultrasound. General surgery to see patient, diet advanced to full's, continue LR's, continue PPI. 2) acute hypoxia On the evening of 07/08/2021, patient became hypoxic with saturations between 89 to 90%. Night physician initiated Zosyn for patient given presence of a lower lobe opacity found on CT on admission. Rapid Covid was negative on admission, Legionella and strep pneumo urinary antigens negative. Currently satting 94% on 2 L via nasal cannula. Continue to monitor. 3) acute hypokalemia Currently 3.1, potassium bolus ordered. 4) abnormal CTA of the chest D-dimer elevated on admission, chest CTA did not demonstrate any evidence of pulmonary embolism or arterial dissection. 5) HTN Stable, continue Norvasc, hold lisinopril/hydrochlorothiazide. As needed hydralazine ordered. DVT prophylaxis -Lovenox Patient seen by Paramjit Last PA-C, under the supervision of Dr. Plascencia. Documented by User: Dr. Leigh Plascencia DO 07/09/21 16:01 Subjective Subjective This patient was seen in conjunction with MARY ELLEN Patel. The following is representation my independent history and physical examination. Please see below for the addendum to the above. Patient states her pain is much improved. Her last dose of morphine was approximately midnight and upon my evaluation it was approximately 11 AM so almost 12 hours since her last dose of pain medication. She is tolerating clear liquids without a problem. Dr. Little had not yet evaluated her at the time of my discussion with her. Objective Data Lab / Micro Data Result Diagrams: 07/09/21 07:35 07/09/21 07:35 Physical Exam Const alert, oriented x3, no apparent distress and average body habitus Exam Limitations: no limitations HEENT head/scalp atraumatic and moist oral mucous membranes Head and Scalp: normocephalic Resp normal respiratory effort, no retractions, no use of accessory muscles and clear to auscultation bilaterally Auscultation: Negative for crackles, rales, rhonchi or wheezes Cardio regular rate, regular rhythm, S1 normal heart sound, S2 normal heart sound, no murmurs, no rub, no gallops, no clicks and no JVD GI soft to palpation and non-distended GI Narrative: Abdominal tenderness is improved and she is guarding less Palpation: tender and guarding Extremity normal to inspection and no clubbing, cyanosis or edema Peripheral Pulses: Yes pulses 2+ throughout Neuro oriented x3, moves all extremities and no focal motor deficits Sensorium / Orientation: awake and alert Speech: speech normal Assessment & Plan Assessment/Plan (1) Acute pancreatitis: QUALIFIERS: Acute pancreatitis complication: unspecified Pancreatitis type: alcohol induced Qualified Code(s): K85.20 - Alcohol induced acute pancreatitis without necrosis or infection (2) Acute hypokalemia: (3) Abnormal CT scan of lung: PLAN: Assessment: Acute pancreatitis Acute hypokalemia-resolved Abnormal CTA of the chest Hypertension Leukocytosis Elevated D-dimer Transaminitis Plan: -Initially the thought was that this may be related to her medications that she is on lisinopril and hydrochlorothiazide which are medications that can induce pancreatitis but with review of her lab data from this morning it appears she has had transaminitis and hyperbilirubinemia that was not present on admission--> with these findings I am more suspicious of gallstone related pancreatitis -Transaminases and bilirubin have improved today and I have discussed the case with GI -Continue IV fluid resuscitation -Diet advanced to full liquids -Requirement for pain medication has decreased -Discontinue Lovenox out of concern for hemorrhagic transformation with the severity of her pancreatitis on admission -It is felt this is likely due to choledocholithiasis as she did have a mild bile duct dilation at 6 mm -Unfortunately MRCP is not available at this time -No surgical consultation needed at this time nor at discharge as patient will follow up with Dr. Little and he will make the appropriate referral depending on follow-up -Patient developed some mild hypoxia last night was placed on nasal cannula--> she did have an abnormal chest x-ray that was suggestive of a pneumonia but no symptoms of pneumonia therefore was not placed on antibiotics at that time however with the changes antibiotics were added and strep pneumo and Legionella antigens were performed and negative -Would reevaluate prior to discharge to see if continued antibiotics are warranted Charges/Coding Visit Charges Inpatient E&M: 53003 Subs Hosp L2
--- NOTE | 2021-07-09 15:37 | EX.PCM.CON.G ---
HPI Consult Data Date of Consult: 07/09/21 HPI Narrative HPI Narrative: NAVEED LEON, is a 51 F who presents with epigastric substernal chest pain that started a few hours ago. She only has a past medical history attention. She states she had it a few days ago but it resolved. She has been moving things and holding children. Her cardiac work-up was negative. She did have an elevated D-dimer so a CTA was ordered and did not show any signs of pulmonary embolism. Her biochemical work-up did show elevated lipase at 11,000 and elevated liver function test and hepatic enzymes. Her bilirubin had gone up to 2.8 with an increase in AST to 1100 and ALT to 1200 and alkaline phosphatase to 250. Imaging did not show any signs of stones in the gallbladder or gallbladder wall thickness. It did show a slightly dilated duct at 6 mm. This morning she is feeling a lot better and her bilirubin has gone down significantly along with her AST ALT and alkaline phosphatase. However her lipase did go up slightly. She still experiencing some bloating and abdominal pain. She has been on IV fluids. She is not experience any chest pain or shortness of breath. [facility] Medical History HTN (hypertension) Home Medications amlodipine 5 mg PO DAILY 07/07/21 [History Last Taken 07/07/21] lisinopril-hydrochlorothiazide 1 tab PO DAILY 07/07/21 [History Last Taken 07/07/21] Allergy/AdvReac Type Severity Reaction Status Date / Time strawberry Allergy Hives Verified 07/07/21 19:29 Family History Other Breast cancer Hypertension Surgical History H/O breast biopsy Social History Smoking Status: Never smoker ROS Review of Systems ROS Unobtainable: other Constitutional Constitutional: Denies fatigue, fever(s), poor appetite, weight gain or weight loss ENT HEENT: Denies mouth lesions Cardiovascular Cardiovascular: Denies abdominal bloating, abdominal edema or abdominal pain Respiratory/Chest Respiratory/Chest: Denies change in mental status, change in phlegm color, chest congestion or chest tightness Gastrointestinal Gastrointestinal: Denies belching, bloating, change in bowel habits, change in stool character, chewing difficulty, coffee ground emesis, constipation, cramping, diarrhea, dyspepsia, dysphagia, early satiety, excessive flatus, fecal incontinence, heartburn, hematemesis, hematochezia, hemorrhoids, loose stools, melena, nausea, odynophagia, rectal bleeding, tenesmus, vomiting or weight changes Genitourinary Genitourinary: Denies abdominal discomfort, burning urination or itching Musculoskeletal Musculoskeletal: Reports as per HPI; Denies muscle weakness or myalgias Integumentary Integumentary: Denies jaundice Neurologic Neurologic: Denies lack of coordination or weakness Psychiatric Psychiatric: Denies confusion, depression, memory loss, mood swings, paranoia or suicidal ideation Endocrine Endocrinology: Denies systems reviewed and no addt'l complaints, except as documented Hematologic/Lymphatic Hematologic/Lymphatic: Denies anemia, easy bleeding, easy bruising or lymphadenopathy Allergic/Immunologic Allergic/Immunologic: Denies systems reviewed and no addt'l complaints, except as documented Physical Exam Const alert General Appearance: cooperative Orientation / Consciousness: oriented to person HEENT hearing grossly normal bilaterally Head and Scalp: normal to inspection Face and Sinus: face symmetric Nose: external nose normal Mouth: oral and palatal mucosa normal Eyes conjunctivae normal General Eye: normal appearance of both eyes Neck full ROM General: normal visual inspection Lymph Lymphatic: no lymphadenopathy noted Chest inspection of chest normal and palpation of chest normal Chest: symmetrical chest wall rise Resp normal respiratory effort Effort and Inspection: able to speak in complete sentences Cardio regular rate GI non-distended Percussion: normal to percussion Rectal Exam: deferred Neuro Speech: speech normal Gait (Neuro): normal gait Lab / Micro Data Result Diagrams: 07/09/21 07:35 07/09/21 07:35 Labs: Laboratory Results - last 24 hr 07/09/21 07:35: WBC 15.4 H, RBC 3.92 L, Hgb 11.2 L, Hct 33.8 L, MCV 86.2, MCH 28.6, MCHC 33.1, RDW Std Deviation 41.8, RDW Coeff of Marti 13.4, Plt Count 172, MPV 9.8, Immature Gran % (Auto) 0.700, Neut % (Auto) 87.9 H, Lymph % (Auto) 6.8 L, [place] % (Auto) 4.4, Eos % (Auto) 0.0, Baso % (Auto) 0.2, Absolute Neuts (auto) 13.5 H, Absolute Lymphs (auto) 1.05, Nucleated RBC % 0 07/09/21 07:35: Sodium 136, Potassium 3.1 L, Chloride 102, Carbon Dioxide 27.0, Anion Gap 7, BUN 14, Creatinine 0.63, Estim Creat Clear Calc 78.82, Est GFR (MDRD) Af Amer 127, Est GFR (MDRD) Non-Af 105, BUN/Creatinine Ratio 22.1 H, Glucose 97, Calcium 8.0 L, Total Bilirubin 1.50 H, AST 707 H, ALT 999 H, Alkaline Phosphatase 156 H, Total Protein 5.3 L, Albumin 2.3 L, Globulin 3.0, Albumin/Globulin Ratio 0.8 L Micro: Microbiology 07/08/21 23:30 Interface Orders Streptococcus pneumoniae Antigen (M - Final 07/08/21 23:30 Interface Orders Legionella Antigen - Final Assessment & Plan Assessment/Plan (1) Acute pancreatitis: QUALIFIERS: Pancreatitis type: alcohol induced Acute pancreatitis complication: unspecified Qualified Code(s): K85.20 - Alcohol induced acute pancreatitis without necrosis or infection PLAN: Her lipase has gone up. However her hematocrit and hemoglobin has decreased which is a good sign that she is being properly fluid resuscitated. Also her BUN/creatinine has also decreased. In the first 48 hours these are the first and most significant indicators that she is doing better. I suspect that her lipase going up is just due to the fact that it has not peaked yet. She is on DVT prophylaxis which increases her risk of hemorrhagic transformation however she is not exhibiting any peritoneal signs. Therefore I do not think we need to reorder a CT scan before the recommended 72 hours. She can have full liquid diet. I would not increase to a regular diet until we have seen her lipase peak and go down. (2) Cholestatic hepatitis: PLAN: This was likely secondary to choledocholithiasis due to the fact that she does have a 6 mm bile duct in a patient that has a gallbladder. By ACG and AGA criteria that is dilated because she has a gallbladder. If an MRCP was available I would order that test due to the fact that her lipase went up. However we will follow her clinically. If that is needed we will order that prior to her being discharged. (3) Jaundice: PLAN: Her bilirubin is improved as I suspect she passed a stone from her bile duct. She has no previous history of jaundice or hepatitis.
[2021-07-09] MEDS: proCHLORPERazine 10 MG/2 ML Vial 5 MG IV (16:28)
[2021-07-09] MEDS: Ketorolac 15 MG/ML Vial IV (16:28)
[2021-07-09] MEDS: Furosemide 40 MG/4 ML Vial IV (18:29)
[2021-07-09] MEDS: Lactated Ringers 1,000 ML 150 ML IV (20:27)
[2021-07-10] MEDS: Ketorolac 30 MG/ML Syringe 15 MG IV ×5 (00:58→23:35)
[2021-07-10 01:03] VITALS: BP 146/77; PULSE 92; RESP 18; TEMP 38.2; O2SAT 92
[2021-07-10] MEDS: Lactated Ringers 1,000 ML 150 ML IV ×2 (03:16→09:53)
[2021-07-10 03:21] VITALS: BP 132/75; PULSE 84; RESP 18; TEMP 37.1; O2SAT 93
[2021-07-10 06:14] LABS: Absolute Lymphocyte Count 1.41 X10^3/uL (0.83-4.51); Basophil# 0.02 X10^3/uL; Basophil% 0.2 % (0-1); Eosinophil# 0.02 X10^3/uL; Eosinophils% 0.2 % (0-5); Hematocrit 29.7 % (37-47); Hemoglobin 9.9 g/dL (12.0-15.0); Lymphocyte # 1.41 X10^3/ul (0.83-4.51); Lymphocyte % 10.7 % (19-41); Mean Corp Hgb Conc 33.3 g/dL (32-36); Mean Corpuscular Hgb 29.1 pg (27.0-32.0); Mean Corpuscular Volume 87.4 fL (81-99); Mean Platelet Vol. 10.4 fl (6.2-12.0); Monocyte# 0.56 X10^3/uL; Monocyte% 4.2 % (0-10); NRBC Flagged by Analyzer 0 % (0-5); Neutrophil # 11.01 X10^3/uL (2.7-7.7); Neutrophil % 83.5 % (47-70); Platelet Count 167 K/mm3 (150-450); RBC Distribution Width CV 13.3 % (11.6-14.6); RBC Distribution Width SD 42.4 fl (35.1-43.9); White Blood Count 13.2 K/mm3 (4.4-11.0)
[2021-07-10 06:52] LABS: ALB/GLOB Ratio 0.6 RATIO (0.9-2.4); AST(SGOT) 246 U/L (15-37); Alanine Aminotransfer ALT/SGPT 602 U/L (13-56); Alkaline Phosphatase 128 U/L (45-117); Anion Gap 4 (5-15); BUN 11 mg/dL (7-18); BUN/Creat Ratio 21.4 RATIO (10-20); Calcium,Total 7.8 mg/dL (8.5-10.1); Chloride 106 mmol/L (98-107); Creatinine, Serum 0.52 mg/dL (0.55-1.02); EST Glomerular Filtration Rate 133 mL/min (>60); Est Glom Filt Rate - Afr Amer 161 mL/min (>60); Globulin 3.1 g/dL (2.2-4.2); Glucose 95 mg/dL (74-106); Potassium 2.6 mmol/L (3.5-5.1); Protein, Total 5.1 g/dL (6.4-8.2); Sodium Level 139 mmol/L (136-145)
[2021-07-10 08:20] VITALS: BP 123/71; PULSE 94; RESP 16; TEMP 36.9; O2SAT 92
[2021-07-10 08:24] VITALS: O2SAT 93
[2021-07-10 08:29] LABS: Magnesium 2.1 mg/dL (1.6-2.6)
[2021-07-10] MEDS: Potassium Chloride 10mEq/100mL 10 MEQ/100 ML IV.SOLN. 100 MEQ IV BOLUS ×4 (08:33→14:25)
[2021-07-10] MEDS: Lisinopril 10 MG Tablet PO (08:37)
[2021-07-10] MEDS: amLODIPine 10 MG Tablet PO (08:37)
--- NOTE | 2021-07-10 08:58 | MRI_ITS ---
STUDY: MR CHOLANGIOPANCREATOGRAPHY (MRCP) REASON FOR EXAM: Female, 51 years old. PAIN CBD STONES PANCREATITIS pancreatitis TECHNIQUE: Standard MRCP technique was utilized. 3-D postprocessing images were obtained. COMPARISON: ct chest 07.07.21. FINDINGS: There are bilateral pleural effusions. There is bilateral pneumonia. There is diffuse enlargement of the pancreas with halima-pancreatic edema suggesting acute pancreatitis. There is ascites. There are T2 hyper intensities of the liver. These maybe cysts but are indeterminate and other etiologies are not excluded. Gall Bladder: Normal gallbladder and extrahepatic biliary system. Cystic duct: Normal with no demonstrated fixed filling defect. Intrahepatic ducts: Normal visualized intrahepatic ducts with no demonstrated fixed filling defect, dilation or stricture. Common hepatic duct: Normal with no demonstrated fixed filling defect, dilation or stricture. Common bile duct: Normal with no demonstrated fixed filling defect, dilation or stricture. Diameter is 2.8 mm. Pancreatic duct: Normal with no demonstrated fixed filling defect, dilation or stricture. MRI/MRCP Abdomen without Contrast IMPRESSION: There are bilateral pleural effusions. There is bilateral pneumonia. There is ascites. There is diffuse enlargement of the pancreas with halima-pancreatic edema suggesting acute pancreatitis. There are T2 hyper intensities of the liver. These maybe cysts but are indeterminate because they are irregular in shape and other etiologies are not excluded. Ct with IV can better evaluate. Electronically Signed: Pacheco Mckeon MD at 17:48 EST , Service support ,
--- NOTE | 2021-07-10 11:22 | CASEMGMT ---
Social Work Note SW reviewed chart. Pt with likely alcohol induced pancreatitis. SW in to speak with pt. SW introduced self and role at [facility]. Pt states that it was about a week ago when she was at the bar. Pt states that she rarely drinks and when she does she only has a couple of drinks. Pt denied any ETOH abuse. Pt denied any issues or concerns at this time. Alem Pierre JOB FOREMAN, MEETING FACILITATOR
--- NOTE | 2021-07-10 11:35 | PCM.PN.HOSP ---
Documented by User: Paramjit HYDE 07/10/21 11:46 Subjective Subjective Patient is a 51-year-old female comfortably resting in bed, alert and orient x3. Patient reports that abdominal pain and nausea, vomiting and diarrhea are controlled. Denies development of any new symptoms overnight. Does not appear in acute distress. Objective Data Objective Data Vital Signs: Vital Signs Temp Pulse Resp BP Pulse Ox 98.5 F 94 16 123/71 H 93 07/10/21 08:20 07/10/21 08:20 07/10/21 08:20 07/10/21 08:20 07/10/21 08:24 Oxygen Flow Rate (L/min) 3 Oxygen Delivery Method Nasal Cannula Weight: 130 lb 4.691 oz Body Mass Index (BMI) 24.6 Intake & Output: Intake and Output for Last 24 Hours 07/08/21 07/09/21 07/10/21 23:59 23:59 23:59 Intake Total 6831.33 / 6831.33 5817.41 / 5817.41 2520.25 / 2520.25 Output Total 1450 / 1450 1000 / 1000 Balance 6831.33 / 6831.33 4367.41 / 4367.41 1520.25 / 1520.25 Lab / Micro Data Result Diagrams: 07/10/21 05:00 07/10/21 05:00 Labs: Laboratory Results - last 24 hr 07/10/21 05:00: WBC 13.2 H, RBC 3.40 L, Hgb 9.9 L, Hct 29.7 L, MCV 87.4, MCH 29.1, MCHC 33.3, RDW Std Deviation 42.4, RDW Coeff of Marti 13.3, Plt Count 167, MPV 10.4, Immature Gran % (Auto) 1.200 H, Neut % (Auto) 83.5 H, Lymph % (Auto) 10.7 L, [place] % (Auto) 4.2, Eos % (Auto) 0.2, Baso % (Auto) 0.2, Absolute Neuts (auto) 11.0 H, Absolute Lymphs (auto) 1.41, Nucleated RBC % 0 07/10/21 05:00: Sodium 139, Potassium 2.6 L*, Chloride 106, Carbon Dioxide 29.0, Anion Gap 4 L, BUN 11, Creatinine 0.52 L, Estim Creat Clear Calc 95.50, Est GFR (MDRD) Af Amer 161, Est GFR (MDRD) Non-Af 133, BUN/Creatinine Ratio 21.4 H, Glucose 95, Calcium 7.8 L, Total Bilirubin 1.10 H, AST 246 H, ALT 602 H, Alkaline Phosphatase 128 H, Total Protein 5.1 L, Albumin 2.0 L, Globulin 3.1, Albumin/Globulin Ratio 0.6 L 07/10/21 05:00: Magnesium 2.1 Micro: Microbiology 07/08/21 23:30 Interface Orders Streptococcus pneumoniae Antigen (M - Final 07/08/21 23:30 Interface Orders Legionella Antigen - Final 07/07/21 21:50 Nasal Secretion SARS-CoV-2 Antigen (Rapid) - Final Physical Exam Const alert, oriented x3 and no apparent distress HEENT head/scalp atraumatic and moist oral mucous membranes Head and Scalp: normocephalic Eyes PERRL, EOMs intact bilaterally and conjunctivae normal Neck no lymphadenopathy, supple and no JVD Resp normal respiratory effort, no retractions, no use of accessory muscles and clear to auscultation bilaterally Cardio regular rate, regular rhythm, no murmurs and no JVD GI normal to inspection, nondistended, normoactive bowel sounds GI Narrative: Abdomen is no longer tender to palpation, which is an improvement from yesterday. Extremity normal to inspection, full ROM and no clubbing, cyanosis or edema Peripheral Pulses: Yes pulses 2+ throughout Skin no rashes or lesions noted, no wounds, skin turgor normal and no jaundice Neuro CN's II-XII intact bilaterally Psych affect normal Assessment & Plan Assessment/Plan (1) Acute pancreatitis: QUALIFIERS: Acute pancreatitis complication: unspecified Pancreatitis type: alcohol induced Qualified Code(s): K85.20 - Alcohol induced acute pancreatitis without necrosis or infection (2) Abnormal CT scan of lung: PLAN: Day 3 Discharge planning: Patient to discharge home when medically ready. 1) acute pancreatitis Patient reports improvement in abdominal pain from yesterday. Patient also reports that nausea and diarrhea are currently controlled. Liver enzymes improved from admission. Patient currently reports no abdominal pain or N/V/D. Diet is currently on clears and will be advanced to full liquids after a scheduled MRCP this afternoon. Additional lipase ordered for a.m., diet will be advanced to full pending decrease in lipase and stable patient symptoms. General surgery following. 2) cholestatic hepatitis MRCP ordered to assess gallbladder. General surgery following. 3) acute hypoxia On the evening of 07/08/2021, patient became hypoxic with saturations between 89 to 90%. Night physician initiated Zosyn for patient given presence of a lower lobe opacity found on CT on admission. Rapid Covid was negative on admission, Legionella and strep pneumo urinary antigens negative. Currently satting 93% on 2 L via nasal cannula. Continue to monitor. 4) acute hypokalemia Currently 2.6, potassium bolus ordered. 4) abnormal CTA of the chest D-dimer elevated on admission, chest CTA did not demonstrate any evidence of pulmonary embolism or arterial dissection. 5) HTN Stable, continue Norvasc, hold lisinopril/hydrochlorothiazide. As needed hydralazine ordered. DVT prophylaxis -Lovenox Patient seen by Paramjit Last PA-C, under the supervision of Dr. Tinoco. Documented by User: Dr. Jessica Tinoco MD 07/10/21 15:56 Objective Data Lab / Micro Data Result Diagrams: 07/10/21 05:00 07/10/21 05:00 Charges/Coding Addendum Addendum: Patient seen by Paramjit Last PA-C under my supervision Patient seen and examined. SHe has no complaints today. She says her abdominal pain is much better. Review of systems is otherwise negative. She has remained hemodynamically stable. O/E: Const alert, oriented x3 and no apparent distress HEENT head/scalp atraumatic and moist oral mucous membranes Head and Scalp: normocephalic Eyes PERRL, EOMs intact bilaterally and conjunctivae normal Neck no lymphadenopathy, supple and no JVD Resp normal respiratory effort, no retractions, no use of accessory muscles and clear to auscultation bilaterally Cardio regular rate, regular rhythm, no murmurs and no JVD GI normal to inspection, nondistended, normoactive bowel sounds GI Narrative: Abdomen is no longer tender to palpation, which is an improvement from yesterday. Extremity normal to inspection, full ROM and no clubbing, cyanosis or edema Peripheral Pulses: Yes pulses 2+ throughout Skin no rashes or lesions noted, no wounds, skin turgor normal and no jaundice Neuro CN's II-XII intact bilaterally Psych affect normal Patient is being managed for acute pancreatitis. Abdominal pian, nausea and diarrhea have improved. Liver enzymes are also trending downwards. On clear liquid diet. For MRCP today. On IV zosyn for right lower lobe pneumonia. On 2L of oxygen by nasal canula. Potassium is 2.6 today. Will replace aggressively. Continue hydrochlorthiazide and lisinopril. IV hydralazine. Continue lovenox for DVT prophylaxis. Rest as per Paramjit Last PA-C's note, which I have reviewed and endorsed. Visit Charges Inpatient E&M: 93660 Subs Hosp L3
--- NOTE | 2021-07-10 12:37 | NURSING ---
1145 pt off unit at this time via wheelchair to MRI
[2021-07-10] MEDS: 0.9% Saline Lock 10 ML Syringe IV ×2 (13:20→16:08)
[2021-07-10] MEDS: Ondansetron 4 MG/2 ML Vial IV (13:21)
[2021-07-10 14:20] VITALS: BP 124/67; PULSE 100; RESP 16; TEMP 37.4; O2SAT 92
--- NOTE | 2021-07-10 15:44 | CASEMGMT ---
ELIS MCBRIDE in to pt room, sig other at bedside. He states pt just had her IV pulled out and she is in the restroom. ELIS MCBRIDE to check back.
--- NOTE | 2021-07-10 17:48 | PN.GI_ITS ---
Subjective Subjective Patient is underwent MRCP. The reading is pending. Abdominal pain is a 3 out of 10, but is controlled with medicines. She is not very hungry. She has been afebrile and she is not having any problems breathing at this time. Objective Data Objective Data Vital Signs: Vital Signs Temp Pulse Resp BP Pulse Ox 99.4 F H 100 16 124/67 H 92 07/10/21 14:20 07/10/21 14:20 07/10/21 14:20 07/10/21 14:20 07/10/21 14:20 Oxygen Flow Rate (L/min) 3 Oxygen Delivery Method Room Air Weight: 130 lb 4.691 oz Body Mass Index (BMI) 24.6 Intake & Output: Intake and Output for Last 24 Hours 07/08/21 07/09/21 07/10/21 23:59 23:59 23:59 Intake Total 6831.33 / 6831.33 5817.41 / 5817.41 3747.00 / 3747.00 Output Total 1450 / 1450 1300 / 1300 Balance 6831.33 / 6831.33 4367.41 / 4367.41 2447.00 / 2447.00 Lab / Micro Data Result Diagrams: 07/10/21 05:00 07/10/21 05:00 Labs: Laboratory Results - last 24 hr 07/10/21 05:00: WBC 13.2 H, RBC 3.40 L, Hgb 9.9 L, Hct 29.7 L, MCV 87.4, MCH 29.1, MCHC 33.3, RDW Std Deviation 42.4, RDW Coeff of Marti 13.3, Plt Count 167, MPV 10.4, Immature Gran % (Auto) 1.200 H, Neut % (Auto) 83.5 H, Lymph % (Auto) 10.7 L, [place] % (Auto) 4.2, Eos % (Auto) 0.2, Baso % (Auto) 0.2, Absolute Neuts (auto) 11.0 H, Absolute Lymphs (auto) 1.41, Nucleated RBC % 0 07/10/21 05:00: Sodium 139, Potassium 2.6 L*, Chloride 106, Carbon Dioxide 29.0, Anion Gap 4 L, BUN 11, Creatinine 0.52 L, Estim Creat Clear Calc 95.50, Est GFR (MDRD) Af Amer 161, Est GFR (MDRD) Non-Af 133, BUN/Creatinine Ratio 21.4 H, Glucose 95, Calcium 7.8 L, Total Bilirubin 1.10 H, AST 246 H, ALT 602 H, Alkaline Phosphatase 128 H, Total Protein 5.1 L, Albumin 2.0 L, Globulin 3.1, Albumin/Globulin Ratio 0.6 L 07/10/21 05:00: Magnesium 2.1 Micro: Microbiology 07/08/21 23:30 Interface Orders Streptococcus pneumoniae Antigen (M - Final 07/08/21 23:30 Interface Orders Legionella Antigen - Final 07/07/21 21:50 Nasal Secretion SARS-CoV-2 Antigen (Rapid) - Final Physical Exam Const alert General Appearance: cooperative Orientation / Consciousness: oriented to person HEENT hearing grossly normal bilaterally Head and Scalp: normal to inspection Face and Sinus: face symmetric Nose: external nose normal Mouth: oral and palatal mucosa normal Eyes conjunctivae normal General Eye: normal appearance of both eyes Neck full ROM General: normal visual inspection Lymph Lymphatic: no lymphadenopathy noted Chest inspection of chest normal and palpation of chest normal Chest: symmetrical chest wall rise Resp normal respiratory effort Effort and Inspection: able to speak in complete sentences Cardio regular rate GI non-distended Percussion: normal to percussion Rectal Exam: deferred Neuro Speech: speech normal Gait (Neuro): normal gait Assessment & Plan Assessment/Plan (1) Cholestatic hepatitis: PLAN: Cholestatic hepatitis likely secondary to biliary obstruction. MRCP is pending. If MRCP is normal she should be able to be DC to home tomorrow (2) Jaundice: PLAN: Her labs continue to improve. She is no longer having darkening urine. (3) Abnormal CT scan of lung: PLAN: She was diagnosed with a lower lobe pneumonia. She is currently being treated. Charges/Coding Visit Charges Inpatient E&M: 86823 Subs Hosp L3
[2021-07-10 20:23] VITALS: BP 121/81; PULSE 90; RESP 20; TEMP 37.1; O2SAT 98
[2021-07-11] VITALS (7 sets, daily range): BP systolic 122–131; BP diastolic 71–99; PULSE 81–95; RESP 16–17; TEMP 36.7–37.5; O2SAT 91–92
[2021-07-11] MEDS: Lactated Ringers 1,000 ML 150 ML IV ×2 (04:44→13:47)
[2021-07-11] MEDS: Ketorolac 30 MG/ML Syringe 15 MG IV ×4 (06:08→23:24)
[2021-07-11 07:38] LABS: Anion Gap 6 (5-15); BUN 10 mg/dL (7-18); BUN/Creat Ratio 21.8 RATIO (10-20); Chloride 108 mmol/L (98-107); Creatinine, Serum 0.46 mg/dL (0.55-1.02); EST Glomerular Filtration Rate 152 mL/min (>60); Est Glom Filt Rate - Afr Amer 184 mL/min (>60); Estimated Creatinine Clearance 107.95 ml/min; Glucose 102 mg/dL (74-106); Lipase 921 U/L (73-393); Potassium 2.7 mmol/L (3.5-5.1); Sodium Level 141 mmol/L (136-145)
[2021-07-11] MEDS: Potassium Chloride Oral Tablet 20 MEQ 60 MEQ PO (08:00)
[2021-07-11 08:18] LABS: Absolute Lymphocyte Count 1.33 X10^3/uL (0.83-4.51); Absolute Neutrophil Count 9.7 X10^3/uL (2.0-7.7); Basophil# 0.05 X10^3/uL; Basophil% 0.4 % (0-1); Eosinophil# 0.07 X10^3/uL; Eosinophils% 0.6 % (0-5); Hematocrit 29.7 % (37-47); Hemoglobin 9.8 g/dL (12.0-15.0); Lymphocyte # 1.33 X10^3/ul (0.83-4.51); Mean Corpuscular Hgb 28.6 pg (27.0-32.0); Mean Corpuscular Volume 86.6 fL (81-99); Mean Platelet Vol. 10.2 fl (6.2-12.0); Monocyte# 0.84 X10^3/uL; Monocyte% 6.9 % (0-10); NRBC Flagged by Analyzer 0 % (0-5); Neutrophil # 9.67 X10^3/uL (2.7-7.7); Neutrophil % 79.6 % (47-70); Platelet Count 214 K/mm3 (150-450); RBC Distribution Width CV 13.4 % (11.6-14.6); RBC Distribution Width SD 42.1 fl (35.1-43.9); Red Blood Count 3.43 M/mm3 (4.2-5.4); White Blood Count 12.1 K/mm3 (4.4-11.0)
[2021-07-11] MEDS: Potassium Chloride 10mEq/100mL 10 MEQ/100 ML IV.SOLN. 100 MEQ IV BOLUS ×4 (08:36→12:03)
[2021-07-11] MEDS: Lisinopril 10 MG Tablet PO (09:49)
[2021-07-11] MEDS: amLODIPine 10 MG Tablet PO (09:49)
--- NOTE | 2021-07-11 10:47 | CASEMGMT ---
ELIS MCBRIDE Assessment: Face to Face with pt for initial transition planning/care coordination assessment. RN REED introduced self and role at [facility], pt voices understanding and consents to assessment. Pt is A/O x4 and answers all questions appropriately at this time. Pt lying in bed with O2 on in no distress. Care providers, pharmacy, and demographics verified/updated. Admitting Dx: acute pancreatitis PCP:Tyrone Kim Specialists:Pt denies. [facility] Prescription Benefit: yes LW/HPOA: Pt denies having a LW/DPOA and denies need for info regarding AD. LNOK: Caesar Noble, pura; Stacey Caldwell, ana liliar; Celio Villalpando, sig other Living Arrangements: Pt lives with sig other in a two story house with one step to enter. Pt reports she is I in ADL's and denies concerns at home. Transportation: Pt drives self and denies concerns with transportation. DME/HHC/SNF: Pt denies having any DME in the home, hx of HHC or SNF stays. Pt states no concerns with going home at time of dc. Pt states no further concerns/needs. CM to follow. Advised pt to ask CM if any further question/concerns/needs arise, voices understanding. Pt Goal: Home Plan: Home
--- NOTE | 2021-07-11 11:42 | PN.HOSP_ITS ---
Documented by User: Paramjit HYDE 07/11/21 12:00 Subjective Subjective Patient is a 51-year-old female comfortably resting in bed, alert and orient x3. Patient still reports some mild nausea while eating, although does report that her abdominal pain is controlled. Denies development of any new symptoms overnight. Does not appear in acute distress. Objective Data Objective Data Vital Signs: Vital Signs Temp Pulse Resp BP Pulse Ox 98.0 F 93 16 127/76 H 92 07/11/21 07:47 07/11/21 07:47 07/11/21 07:47 07/11/21 07:47 07/11/21 08:00 Oxygen Flow Rate (L/min) 3 Oxygen Delivery Method Nasal Cannula Weight: 130 lb 4.691 oz Body Mass Index (BMI) 24.6 Intake & Output: Intake and Output for Last 24 Hours 07/09/21 07/10/21 07/11/21 23:59 23:59 23:59 Intake Total 5817.41 / 5817.41 4256.50 / 4456.50 852.5 / 852.5 Output Total 1450 / 1450 1300 / 1300 Balance 4367.41 / 4367.41 2956.50 / 3156.50 852.5 / 852.5 Lab / Micro Data Result Diagrams: 07/11/21 06:00 07/11/21 06:00 Labs: Laboratory Results - last 24 hr 07/11/21 06:00: Sodium 141, Potassium 2.7 L*, Chloride 108 H, Carbon Dioxide 27.0, Anion Gap 6, BUN 10, Creatinine 0.46 L, Estim Creat Clear Calc 107.95, Est GFR (MDRD) Af Amer 184, Est GFR (MDRD) Non-Af 152, BUN/Creatinine Ratio 21.8 H, Glucose 102, Calcium 8.0 L, Lipase 921 H 07/11/21 06:00: WBC 12.1 H, RBC 3.43 L, Hgb 9.8 L, Hct 29.7 L, MCV 86.6, MCH 28.6, MCHC 33.0, RDW Std Deviation 42.1, RDW Coeff of Marti 13.4, Plt Count 214, MPV 10.2, Immature Gran % (Auto) 1.500 H, Neut % (Auto) 79.6 H, Lymph % (Auto) 11.0 L, [place] % (Auto) 6.9, Eos % (Auto) 0.6, Baso % (Auto) 0.4, Absolute Neuts (auto) 9.7 H, Absolute Lymphs (auto) 1.33, Nucleated RBC % 0 Micro: Microbiology 07/08/21 23:30 Interface Orders Streptococcus pneumoniae Antigen (M - Final 07/08/21 23:30 Interface Orders Legionella Antigen - Final 07/07/21 21:50 Nasal Secretion SARS-CoV-2 Antigen (Rapid) - Final Radiography Diagnostic Testing: Radiology Impression MRCP 07/10/21 08:58 IMPRESSION: There are bilateral pleural effusions. There is bilateral pneumonia. There is ascites. There is diffuse enlargement of the pancreas with halima-pancreatic edema suggesting acute pancreatitis. There are T2 hyper intensities of the liver. These maybe cysts but are indeterminate because they are irregular in shape and other etiologies are not excluded. Ct with IV can better evaluate. Electronically Signed: Pacheco Mckeon MD at 17:48 EST , Service support , Physical Exam Const alert, oriented x3 and no apparent distress HEENT head/scalp atraumatic, moist oral mucous membranes and oropharynx normal Head and Scalp: normocephalic Eyes PERRL, EOMs intact bilaterally and conjunctivae normal Neck no lymphadenopathy, supple and no JVD Resp normal respiratory effort, no retractions, no use of accessory muscles and clear to auscultation bilaterally Resp Narrative: Currently satting 92% on 3 L via nasal cannula. Cardio regular rate, regular rhythm, no murmurs and no JVD GI normal to inspection, nondistended, normoactive bowel sounds GI Narrative: Patient reports that abdominal pain is controlled, still does experience mild discomfort and nausea on full liquid diet. Extremity normal to inspection, full ROM and no clubbing, cyanosis or edema Peripheral Pulses: Yes pulses 2+ throughout Skin no rashes or lesions noted, no wounds, skin turgor normal and no jaundice Neuro CN's II-XII intact bilaterally Psych affect normal Assessment & Plan Assessment/Plan (1) Acute pancreatitis: QUALIFIERS: Acute pancreatitis complication: unspecified Pancreatitis type: alcohol induced Qualified Code(s): K85.20 - Alcohol induced acute pancreatitis without necrosis or infection (2) Cholestatic hepatitis: PLAN: Day 4 Discharge planning: Patient to discharge home when medically ready, potential discharge tomorrow. 1) acute pancreatitis Patient still reports mild abdominal pain patient still reports mild abdominal pain and nausea on full liquid diet. Lipase levels have lowered to 900 this morning, down from 12,000 from prior study. Will advance diet pending patient symptoms. GI following. 2) cholestatic hepatitis MRCP of the abdomen did not demonstrate any gallstones only findings consistent with pancreatitis and bilateral pneumonia with effusions. 3) Bilateral pneumonia On the evening of 07/08/2021, patient became hypoxic with saturations between 89 to 90%. Bilateral pneumonia evident on MRCP and chest CTA. Rapid Covid was ne gative on admission, Legionella and strep pneumo urinary antigens negative. Currently satting 93% on 2 L via nasal cannula. Continue Zosyn, initiate azithromycin, continue to monitor. 4) acute hypokalemia 2.7, potassium infusion initiated. Continue to monitor BMP. 4) abnormal CTA of the chest D-dimer elevated on admission, chest CTA did not demonstrate any evidence of pulmonary embolism or arterial dissection. 5) HTN Stable, continue Norvasc, hold lisinopril/hydrochlorothiazide. As needed hydralazine ordered. DVT prophylaxis -Lovenox Patient seen by Paramjit Last PA-C, under the supervision of Dr. Tinoco. Documented by User: Dr. Jessica Tinooc MD 07/11/21 15:21 Objective Data Lab / Micro Data Result Diagrams: 07/11/21 06:00 07/11/21 06:00 Charges/Coding Addendum Addendum: Patient seen by Paramjit Last PA-C under my supervision Patient seen and examined. She complains of some cramping in her left thigh. She remains on 2 L of oxygen. She admits to a cough which is nonproductive. Review of systems otherwise negative. O/E Const alert, oriented x3 and no apparent distress HEENT head/scalp atraumatic and moist oral mucous membranes Head and Scalp: normocephalic Eyes PERRL, EOMs intact bilaterally and conjunctivae normal Neck no lymphadenopathy, supple and no JVD Resp normal respiratory effort, no retractions, no use of accessory muscles and clear to auscultation bilaterally Cardio regular rate, regular rhythm, no murmurs and no JVD GI normal to inspection, nondistended, normoactive bowel sounds GI Narrative: Abdomen soft, non tender, no organomegaly Extremity normal to inspection, full ROM and no clubbing, cyanosis or edema Peripheral Pulses: Yes pulses 2+ throughout Skin no rashes or lesions noted, no wounds, skin turgor normal and no jaundice Neuro CN's II-XII intact bilaterally Psych affect normal Abdominal pain has improved. Liver enzymes are trending down. MRCP showed no evidence of cholelithiasis or choledocho lithiasis. There was evidence of bilateral pneumonia and acute pancreatitis. Abdominal pain is much better so we will advance diet as tolerated. Stop IV fluids. Potassium is low today at 2.7 so we will aggressively replace. Continue IV Zosyn. Azithromycin added on. Lisinopril and hydrochlorothiazide remain on hold. Titrate oxygen to maintain saturation above 90%. Continue Lovenox for DVT prophylaxis. Rest as per Paramjit Last PA-C's note which I reviewed and endorsed. Visit Charges Inpatient E&M: 06375 Subs Hosp L2
[2021-07-11] MEDS: 0.9% Saline Lock 10 ML Syringe IV (12:09)
[2021-07-11] MEDS: Ondansetron 4 MG/2 ML Vial IV (12:09)
--- NOTE | 2021-07-11 19:16 | EX.PCM.PN.GI ---
Subjective Subjective Patient is not having any abdominal pain at this time. She is tolerating diet. She is having bowel movements. Objective Data Objective Data Vital Signs: Vital Signs Temp Pulse Resp BP Pulse Ox 99.0 F 94 16 122/71 H 92 07/11/21 13:27 07/11/21 13:27 07/11/21 13:29 07/11/21 13:27 07/11/21 13:27 Oxygen Flow Rate (L/min) 3 Oxygen Delivery Method Nasal Cannula Weight: 130 lb 4.691 oz Body Mass Index (BMI) 24.6 Intake & Output: Intake and Output for Last 24 Hours 07/09/21 07/10/21 07/11/21 23:59 23:59 23:59 Intake Total 5817.41 / 5817.41 4256.50 / 4456.50 1960.0 / 1960.0 Output Total 1450 / 1450 1300 / 1300 Balance 4367.41 / 4367.41 2956.50 / 3156.50 1960.0 / 1960.0 Lab / Micro Data Result Diagrams: 07/11/21 06:00 07/11/21 06:00 Labs: Laboratory Results - last 24 hr 07/11/21 06:00: Sodium 141, Potassium 2.7 L*, Chloride 108 H, Carbon Dioxide 27.0, Anion Gap 6, BUN 10, Creatinine 0.46 L, Estim Creat Clear Calc 107.95, Est GFR (MDRD) Af Amer 184, Est GFR (MDRD) Non-Af 152, BUN/Creatinine Ratio 21.8 H, Glucose 102, Calcium 8.0 L, Lipase 921 H 07/11/21 06:00: WBC 12.1 H, RBC 3.43 L, Hgb 9.8 L, Hct 29.7 L, MCV 86.6, MCH 28.6, MCHC 33.0, RDW Std Deviation 42.1, RDW Coeff of Marti 13.4, Plt Count 214, MPV 10.2, Immature Gran % (Auto) 1.500 H, Neut % (Auto) 79.6 H, Lymph % (Auto) 11.0 L, [place] % (Auto) 6.9, Eos % (Auto) 0.6, Baso % (Auto) 0.4, Absolute Neuts (auto) 9.7 H, Absolute Lymphs (auto) 1.33, Nucleated RBC % 0 Micro: Microbiology 07/08/21 23:30 Interface Orders Streptococcus pneumoniae Antigen (M - Final 07/08/21 23:30 Interface Orders Legionella Antigen - Final 07/07/21 21:50 Nasal Secretion SARS-CoV-2 Antigen (Rapid) - Final Physical Exam Const alert General Appearance: cooperative Orientation / Consciousness: oriented to person HEENT hearing grossly normal bilaterally Head and Scalp: normal to inspection Face and Sinus: face symmetric Nose: external nose normal Mouth: oral and palatal mucosa normal Eyes conjunctivae normal General Eye: normal appearance of both eyes Neck full ROM General: normal visual inspection Lymph Lymphatic: no lymphadenopathy noted Chest inspection of chest normal and palpation of chest normal Chest: symmetrical chest wall rise Resp normal respiratory effort Effort and Inspection: able to speak in complete sentences Cardio regular rate GI non-distended Percussion: normal to percussion Rectal Exam: deferred Neuro Speech: speech normal Gait (Neuro): normal gait Assessment & Plan Assessment/Plan (1) Jaundice: PLAN: Jaundice has resolved. This was secondary to biliary obstruction. MRCP did not show any signs of obstructive physiology. There are no stones in her gallbladder and no gallbladder wall thickness. We discussed possibly putting her on ursodiol in the future. I suspect that this is her first episode of biliary obstruction and it has passed. (2) Cholestatic hepatitis: PLAN: LFTs continue to improve. This was secondary to choledocholithiasis which is resolved. (3) Acute pancreatitis: QUALIFIERS: Pancreatitis type: alcohol induced Acute pancreatitis complication: unspecified Qualified Code(s): K85.20 - Alcohol induced acute pancreatitis without necrosis or infection PLAN: Her lipase is almost back to normal. She continues to improve. Advance diet as tolerated. I would have her on a low-fat diet for the next 4 to 6 weeks. Charges/Coding Visit Charges Inpatient E&M: 22952 Subs Hosp L2
[2021-07-12] VITALS (7 sets, daily range): BP systolic 114–135; BP diastolic 69–79; PULSE 79–99; RESP 16–18; TEMP 36.7–38.3; O2SAT 91–94
[2021-07-12] MEDS: Ketorolac 30 MG/ML Syringe 15 MG IV (05:13)
[2021-07-12 06:49] LABS: Absolute Lymphocyte Count 1.58 X10^3/uL (0.83-4.51); Absolute Neutrophil Count 10.4 X10^3/uL (2.0-7.7); Basophil# 0.08 X10^3/uL; Basophil% 0.6 % (0-1); Eosinophils% 0.7 % (0-5); Hematocrit 28.3 % (37-47); Hemoglobin 9.5 g/dL (12.0-15.0); Lymphocyte # 1.58 X10^3/ul (0.83-4.51); Lymphocyte % 11.4 % (19-41); Mean Corp Hgb Conc 33.6 g/dL (32-36); Mean Corpuscular Hgb 28.8 pg (27.0-32.0); Mean Corpuscular Volume 85.8 fL (81-99); Mean Platelet Vol. 9.5 fl (6.2-12.0); Monocyte# 1.33 X10^3/uL; Monocyte% 9.6 % (0-10); NRBC Flagged by Analyzer 0 % (0-5); Neutrophil # 10.44 X10^3/uL (2.7-7.7); Neutrophil % 75.2 % (47-70); Platelet Count 253 K/mm3 (150-450); RBC Distribution Width CV 13.3 % (11.6-14.6); RBC Distribution Width SD 41.9 fl (35.1-43.9); White Blood Count 13.9 K/mm3 (4.4-11.0)
[2021-07-12 07:29] LABS: Anion Gap 7 (5-15); BUN 10 mg/dL (7-18); BUN/Creat Ratio 23.3 RATIO (10-20); Calcium,Total 8.2 mg/dL (8.5-10.1); Chloride 107 mmol/L (98-107); Creatinine, Serum 0.43 mg/dL (0.55-1.02); EST Glomerular Filtration Rate 164 mL/min (>60); Est Glom Filt Rate - Afr Amer 199 mL/min (>60); Estimated Creatinine Clearance 115.49 ml/min; Glucose 99 mg/dL (74-106); Potassium 2.9 mmol/L (3.5-5.1); Sodium Level 138 mmol/L (136-145)
[2021-07-12] MEDS: Potassium Chloride Oral Tablet 20 MEQ 60 MEQ PO (08:18)
[2021-07-12] MEDS: Potassium Chloride 10mEq/100mL 10 MEQ/100 ML IV.SOLN. 100 MEQ IV BOLUS (09:00)
--- NOTE | 2021-07-12 10:01 | NURSING ---
Pt had p.o. of 87-88% when cleaning up in [place], but P.O. natalie to 91-92% when ambulating.
[2021-07-12] MEDS: amLODIPine 10 MG Tablet PO (10:09)
[2021-07-12] MEDS: Lisinopril 10 MG Tablet PO (10:09)
[2021-07-12] MEDS: Potassium Chloride 10mEq/100mL 10 MEQ/100 ML IV.SOLN. 70 MEQ IV BOLUS ×3 (11:01→14:00)
--- NOTE | 2021-07-12 11:27 | PN.HOSP_ITS ---
Documented by User: Paramjit HYDE 07/12/21 11:33 Subjective Subjective Patient is a 51-year-old female comfortably resting in bed, alert and oriented x3. Patient denies any more abdominal pain or GI symptoms and reports tolerating advancement of her diet well. Denies development of any new symptoms overnight. Does not appear in acute distress. Objective Data Objective Data Vital Signs: Vital Signs Temp Pulse Resp BP Pulse Ox 98.4 F 94 16 132/78 H 94 07/12/21 09:57 07/12/21 09:57 07/12/21 09:57 07/12/21 09:57 07/12/21 10:00 Oxygen Flow Rate (L/min) 3 Oxygen Delivery Method Room Air Weight: 130 lb 4.691 oz Body Mass Index (BMI) 24.6 Intake & Output: Intake and Output for Last 24 Hours 07/10/21 07/11/21 07/12/21 23:59 23:59 23:59 Intake Total 4256.50 / 4456.50 1960.0 / 1960.0 400.00 / 400.00 Output Total 1300 / 1300 Balance 2956.50 / 3156.50 1960.0 / 1960.0 400.00 / 400.00 Lab / Micro Data Result Diagrams: 07/12/21 06:10 07/12/21 06:10 Labs: Laboratory Results - last 24 hr 07/12/21 06:10: WBC 13.9 H, RBC 3.30 L, Hgb 9.5 L, Hct 28.3 L, MCV 85.8, MCH 28.8, MCHC 33.6, RDW Std Deviation 41.9, RDW Coeff of Marti 13.3, Plt Count 253, MPV 9.5, Immature Gran % (Auto) 2.500 H, Neut % (Auto) 75.2 H, Lymph % (Auto) 11.4 L, [place] % (Auto) 9.6, Eos % (Auto) 0.7, Baso % (Auto) 0.6, Absolute Neuts (auto) 10.4 H, Absolute Lymphs (auto) 1.58, Nucleated RBC % 0 07/12/21 06:10: Sodium 138, Potassium 2.9 L, Chloride 107, Carbon Dioxide 24.0, Anion Gap 7, BUN 10, Creatinine 0.43 L, Estim Creat Clear Calc 115.49, Est GFR (MDRD) Af Amer 199, Est GFR (MDRD) Non-Af 164, BUN/Creatinine Ratio 23.3 H, Glucose 99, Calcium 8.2 L Micro: Microbiology 07/08/21 23:30 Interface Orders Streptococcus pneumoniae Antigen (M - Final 07/08/21 23:30 Interface Orders Legionella Antigen - Final 07/07/21 21:50 Nasal Secretion SARS-CoV-2 Antigen (Rapid) - Final Physical Exam Const alert, oriented x3 and no apparent distress HEENT head/scalp atraumatic and moist oral mucous membranes Head and Scalp: normocephalic Eyes PERRL, EOMs intact bilaterally and conjunctivae normal Neck no lymphadenopathy, supple and no JVD Resp normal respiratory effort, no retractions, no use of accessory muscles and clear to auscultation bilaterally Cardio regular rate, regular rhythm, no murmurs and no JVD GI normal to inspection, nondistended, normoactive bowel sounds, soft to palpation and non-tender Extremity normal to inspection, full ROM and no clubbing, cyanosis or edema Peripheral Pulses: Yes pulses 2+ throughout Skin no rashes or lesions noted, no wounds and skin turgor normal Neuro CN's II-XII intact bilaterally Psych affect normal Assessment & Plan Assessment/Plan (1) Cholestatic hepatitis: (2) Acute pancreatitis: QUALIFIERS: Acute pancreatitis complication: unspecified Pancreatitis type: alcohol induced Qualified Code(s): K85.20 - Alcohol induced acute pancreatitis without necrosis or infection PLAN: Day 5 Discharge planning: Patient to discharge home when medically ready, potential discharge tomorrow 07/13/2021. 1) acute pancreatitis Resolved, patient reports no abdominal pain or GI symptoms with advancement of diet. Is no longer requiring significant pain medication to control symptoms. Lipase levels have lowered to 900, down from 12,000 from prior study. GI following. Patient is to follow-up with Dr. Little within 2 weeks after discharge. 2) cholestatic hepatitis MRCP of the abdomen did not demonstrate any gallstones only findings consistent with pancreatitis and bilateral pneumonia with effusions. GI following. Patient is to follow-up with Dr. Little within 2 weeks after discharge. 3) Bilateral pneumonia On the evening of 07/08/2021, patient became hypoxic with saturations between 89 to 90%. Bilateral pneumonia evident on MRCP and chest CTA. Rapid Covid was negative on admission, Legionella and strep pneumo urinary antigens negative. Currently satting 93% on 2 L via nasal cannula. Continue Zosyn, initiate azithromycin, continue to monitor. 4) acute hypokalemia Potassium was 2.9 this morning despite aggressive infusion, nephrology consult ordered, continue to monitor BMP. 4) abnormal CTA of the chest D-dimer elevated on admission, chest CTA did not demonstrate any evidence of pulmonary embolism or arterial dissection. 5) HTN Stable, continue Norvasc, hold lisinopril/hydrochlorothiazide. As needed hydralazine ordered. DVT prophylaxis -Lovenox Patient seen by Paramjit Last PA-C, under the supervision of Dr. Tinoco. Documented by User: Dr. Jessica Tinoco MD 07/12/21 17:17 Objective Data Lab / Micro Data Result Diagrams: 07/12/21 06:10 07/12/21 06:10 Charges/Coding Addendum Addendum: Patient seen by Paramijt Lats PA-C under my supervision Patient seen and examined. She had no active events overnight. She remains on 2 L of oxygen. Her abdominal pain has improved. Review of systems otherwise negative. O/E Const alert, oriented x3 and no apparent distress HEENT head/scalp atraumatic and moist oral mucous membranes Head and Scalp: normocephalic Eyes PERRL, EOMs intact bilaterally and conjunctivae normal Neck no lymphadenopathy, supple and no JVD Resp normal respiratory effort, no retractions, no use of accessory muscles and clear to auscultation bilaterally Cardio regular rate, regular rhythm, no murmurs and no JVD GI normal to inspection, nondistended, normoactive bowel sounds GI Narrative: Abdomen soft, non tender, no organomegaly Extremity normal to inspection, full ROM and no clubbing, cyanosis or edema Peripheral Pulses: Yes pulses 2+ throughout Skin no rashes or lesions noted, no wounds, skin turgor normal and no jaundice Neuro CN's II-XII intact bilaterally Psych affect normal Patient remains on IV antibiotics. Potassium remains low today at 2.9 so been aggressively replaced. Continue on IV Zosyn and azithromycin. Continues on IV Zosyn and IV azithromycin. Try to wean off oxygen and titrate to maintain saturation above 90%. Continue Lovenox for DVT prophylaxis. For likely discharge home tomorrow. Rest as per Paramjit Last PA-C's note which I reviewed and endorsed. Visit Charges Inpatient E&M: 76524 Subs Hosp L2
[2021-07-12] MEDS: 0.9% Saline Lock 10 ML Syringe IV (12:18)
[2021-07-12] MEDS: Ondansetron 4 MG/2 ML Vial IV (12:18)
[2021-07-12] MEDS: Ibuprofen 600 MG Tablet PO ×2 (14:05→20:05)
[2021-07-13] MEDS: hydrOXYzine PAM 25 MG Capsule PO (00:13)
[2021-07-13 02:19] VITALS: BP 126/73; PULSE 85; RESP 16; TEMP 38.2; O2SAT 92
[2021-07-13] MEDS: Ibuprofen 600 MG Tablet PO ×2 (02:27→08:57)
[2021-07-13 04:15] VITALS: TEMP 36.9
[2021-07-13 04:21] VITALS: BP 117/72; PULSE 81; RESP 16; TEMP 37; O2SAT 96
[2021-07-13 05:52] LABS: Absolute Neutrophil Count 9.2 X10^3/uL (2.0-7.7); Basophil# 0.06 X10^3/uL; Basophil% 0.5 % (0-1); Eosinophil# 0.15 X10^3/uL; Eosinophils% 1.2 % (0-5); Hematocrit 28.3 % (37-47); Hemoglobin 9.2 g/dL (12.0-15.0); Lymphocyte % 13.8 % (19-41); Mean Corp Hgb Conc 32.5 g/dL (32-36); Mean Corpuscular Hgb 28.3 pg (27.0-32.0); Mean Corpuscular Volume 87.1 fL (81-99); Mean Platelet Vol. 9.6 fl (6.2-12.0); Monocyte# 1.28 X10^3/uL; Monocyte% 9.8 % (0-10); NRBC Flagged by Analyzer 0 % (0-5); Neutrophil # 9.22 X10^3/uL (2.7-7.7); Neutrophil % 70.9 % (47-70); Platelet Count 287 K/mm3 (150-450); RBC Distribution Width CV 13.6 % (11.6-14.6); RBC Distribution Width SD 43.5 fl (35.1-43.9); Red Blood Count 3.25 M/mm3 (4.2-5.4)
[2021-07-13 06:40] LABS: Anion Gap 6 (5-15); BUN 11 mg/dL (7-18); BUN/Creat Ratio 24.1 RATIO (10-20); Chloride 110 mmol/L (98-107); Creatinine, Serum 0.46 mg/dL (0.55-1.02); EST Glomerular Filtration Rate 153 mL/min (>60); Est Glom Filt Rate - Afr Amer 185 mL/min (>60); Estimated Creatinine Clearance 107.95 ml/min; Glucose 105 mg/dL (74-106); Potassium 3.1 mmol/L (3.5-5.1); Sodium Level 139 mmol/L (136-145)
[2021-07-13 07:52] VITALS: O2SAT 94
--- NOTE | 2021-07-13 08:06 | PCM.CONS.R ---
Assessment & Plan Assessment/Plan (1) Acute hypokalemia: PLAN: likely from diuretic and poor oral intake K is correcting with IV and Po KCl K 3.1. Please give the patient KCl 60 mEq PO Avoid HCTZ at discharge. this can be resumed as outpatient if K remains in good range HTN: BP is well controlled Pancreatitis. resolved. likely alcoholic thank you d/w Dr. Tinoco. HPI Consult Data Date of Consult: 07/13/21 HPI Narrative HPI Narrative: NAVEED LEON, is a 51 F PMH of HTN on HCTZ, lisinopril and norvasc at home patient presented with epigastric pain and was found to have pancreatitis. Patient developed hypoxia and was found to have pneumonia while inpatient. Patient treated with Abx. pancreatitis improved and now on regular diet Renal team is consulted for hypokalemia. patient received 2 doses of HCTZ and one dose on lasix this admission . patient was kept NPO when she was first admitted for pancreatitis. K was replaced IV adn PO. K level today improved to 3.1 No diarrhea. eating well ROS: 12 systems review is negative [facility] Medical History HTN (hypertension) Home Medications amlodipine 5 mg PO DAILY 07/07/21 [History Last Taken 07/07/21] lisinopril-hydrochlorothiazide 1 tab PO DAILY 07/07/21 [History Last Taken 07/07/21] Allergy/AdvReac Type Severity Reaction Status Date / Time strawberry Allergy Hives Verified 07/07/21 19:29 Family History Other Breast cancer Hypertension Surgical History H/O breast biopsy Social History Smoking Status: Never smoker Physical Exam Narrative NAD Head AT NC No JVD Heart S1/S2 RRR Chest CTA Abd: soft + BS No tenderness Ext no edema Neuro: No focal . [id number] Skin: no rash Lab / Micro Data Result Diagrams: 07/13/21 05:14 07/13/21 05:14 Labs: Laboratory Results - last 24 hr 07/13/21 05:14: WBC 13.0 H, RBC 3.25 L, Hgb 9.2 L, Hct 28.3 L, MCV 87.1, MCH 28.3, MCHC 32.5, RDW Std Deviation 43.5, RDW Coeff of Marti 13.6, Plt Count 287, MPV 9.6, Immature Gran % (Auto) 3.800 H, Neut % (Auto) 70.9 H, Lymph % (Auto) 13.8 L, [place] % (Auto) 9.8, Eos % (Auto) 1.2, Baso % (Auto) 0.5, Absolute Neuts (auto) 9.2 H, Absolute Lymphs (auto) 1.80, Nucleated RBC % 0 07/13/21 05:14: Sodium 139, Potassium 3.1 L, Chloride 110 H, Carbon Dioxide 23.0, Anion Gap 6, BUN 11, Creatinine 0.46 L, Estim Creat Clear Calc 107.95, Est GFR (MDRD) Af Amer 185, Est GFR (MDRD) Non-Af 153, BUN/Creatinine Ratio 24.1 H, Glucose 105, Calcium 8.0 L
[2021-07-13 08:42] VITALS: BP 138/86; PULSE 95; RESP 18; TEMP 36.9; O2SAT 98
[2021-07-13 08:44] VITALS: O2SAT 95; O2SAT 98
[2021-07-13] MEDS: amLODIPine 10 MG Tablet PO (08:51)
[2021-07-13] MEDS: Lisinopril 10 MG Tablet PO (08:51)
[2021-07-13] MEDS: Potassium Chloride Oral Tablet 20 MEQ 60 MEQ PO (08:56)
--- NOTE | 2021-07-13 10:04 | PCM.DC ---
Discharge Instructions Diet Discharge Diet: No restrictions Activity Discharge Activity: Return to Normal Activity Dressing / Incision Call your doctor if you observe: Fever of 101 or Higher and Uncontrolled pain Follow Up Care Please Follow Up With: Jake Kim MD When: 1-2 weeks Test Results: Test results from this visit will be discussed in further detail at your follow-up appointment, if applicable. Discharge Plan Admission Admit Date/Time: 07/07/21 22:18 Primary Reason for Your Visit: Acute Pancreatitis Attending Provider: Jessica Tinoco Primary Care Provider: Jake Kim Consulting Providers: Prosper Little ; Shaheed Hartmann Discharge Orders/Prescriptions Prescriptions: New amlodipine 10 mg Tablet 10 mg PO DAILY 30 Days Qty: 30 RF: 0 lisinopril 10 mg Tablet 10 mg PO DAILY 30 Days Qty: 30 RF: 0 levofloxacin 750 mg tablet 750 mg PO DAILY Qty: 5 RF: 0 Discontinued amlodipine 5 mg tablet 5 mg PO DAILY RF: 0 lisinopril-hydrochlorothiazide 10-12.5 mg tablet 1 tab PO DAILY RF: 0 Referrals / Follow Up: Jake Kim MD [Primary Care Provider] - Within 1 Week (recommend rechecking bmp in 2-3 days) Disposition Disposition (needs filled in before D/C Order can be placed): Home, Self Care
--- NOTE | 2021-07-13 10:16 | PCM.DC.SUM ---
Providers Date of Admission: 07/07/21 Primary Care Physician: Dr. Jake Kim MD Consultations 07/08/21 16:39 Consult: Gastroenterology Routine Consulting Provider: Prosper Little Reason for Consult: Pancreatitis with elevated LFT EMERGENT Consult: No Notified: Yes Date Notified: 07/08/21 Time Notified: 16:39 Method of Notification: Text 07/12/21 11:26 Consult: Nephrology Routine Consulting Provider: Shaheed Hartmann Reason for Consult: refractory hypokalemia EMERGENT Consult: No Notified: Yes Date Notified: 07/12/21 Time Notified: 12:27 Method of Notification: office Reason For Visit: ACUTE PANCREATITIS Diagnosis Discharge Diagnosis (1) Acute hypokalemia: Status: Acute Code(s): E87.6 - Hypokalemia Medications at Discharge Home Medications amlodipine 10 mg PO DAILY 30 Days #30 tab 07/13/21 levofloxacin 750 mg PO DAILY #5 tab 07/13/21 lisinopril 10 mg PO DAILY 30 Days #30 tab 07/13/21 Hospital Course Operations None Procedures EKG and - (MRCP) Summary of Care Provided Minutes Spent on Discharge: 35 Hospital Course: Patient is a 51-year-old female who originally presented with abdominal pain. Patient was diagnosed with acute pancreatitis as well as bilateral pneumonia. During admission patient received an MRCP which showed bilateral pleural effusions with bilateral pneumonia as well as diffuse enlargement of the pancreas with peripancreatic edema. There is also finding of T2 hyperintensities of the liver which may be cysts but are also indeterminate because they are irregular in shape, bladder ultrasound demonstrates echogenicity consistent with fatty infiltration of the liver. Patient received 6 days of IV Zosyn as well as 3 days of IV azithromycin. Patient will be discharged on a short course of Levaquin. Physical Exam Const alert, oriented x3 and no apparent distress General Appearance: cooperative HEENT normocephalic and head/scalp atraumatic Eyes conjunctivae normal and no scleral icterus Neck supple General: trachea midline Resp normal respiratory effort, normal air movement and clear to auscultation bilaterally Cardio regular rate, regular rhythm, S1 normal heart sound, S2 normal heart sound and peripheral pulses 2+ throughout GI normal to inspection, nondistended, normoactive bowel sounds and soft to palpation Extremity normal capillary refill and no clubbing, cyanosis or edema General Extremity: no tenderness to palpation of joints or extremities Skin skin turgor normal General Skin Exam: no breakdown Lesions: no lesions Rashes: no rashes Neuro no focal motor deficits and no sensory deficits noted Speech: speech normal Gait (Neuro): normal gait Motor Exam: Negative for general weakness Psych affect normal Appearance: appropriate Weight / BMI Weight Weight: 130 lb 4.691 oz Body Mass Index (BMI) 24.6 ABG / Lab / Microbiology Data Result Diagrams: 07/13/21 05:14 07/13/21 05:14 Laboratory: Laboratory Results - last 24 hr 07/13/21 05:14: WBC 13.0 H, RBC 3.25 L, Hgb 9.2 L, Hct 28.3 L, MCV 87.1, MCH 28.3, MCHC 32.5, RDW Std Deviation 43.5, RDW Coeff of Marti 13.6, Plt Count 287, MPV 9.6, Immature Gran % (Auto) 3.800 H, Neut % (Auto) 70.9 H, Lymph % (Auto) 13.8 L, [place] % (Auto) 9.8, Eos % (Auto) 1.2, Baso % (Auto) 0.5, Absolute Neuts (auto) 9.2 H, Absolute Lymphs (auto) 1.80, Nucleated RBC % 0 07/13/21 05:14: Sodium 139, Potassium 3.1 L, Chloride 110 H, Carbon Dioxide 23.0, Anion Gap 6, BUN 11, Creatinine 0.46 L, Estim Creat Clear Calc 107.95, Est GFR (MDRD) Af Amer 185, Est GFR (MDRD) Non-Af 153, BUN/Creatinine Ratio 24.1 H, Glucose 105, Calcium 8.0 L Microbiology: Microbiology 07/08/21 23:30 Interface Orders Streptococcus pneumoniae Antigen (M - Final 07/08/21 23:30 Interface Orders Legionella Antigen - Final 07/07/21 21:50 Nasal Secretion SARS-CoV-2 Antigen (Rapid) - Final D/C Instructions Discharge Diet: No restrictions Call your doctor if you observe: Fever of 101 or Higher, Shortness of breath and Uncontrolled pain Please Follow Up With: Jake Kim MD When: 1-2 weeks Meaningful Use Info Meaningful Use Diagnoses (Choose all that apply): None applicable Discharge Plan Admission Admit Date/Time: 07/07/21 22:18 Primary Reason for Your Visit: Acute Pancreatitis Attending Provider: Jessica Tinoco Primary Care Provider: Jake Kim Consulting Providers: Prosper Little ; Shaheed Hartmann Instructions Patient Instructions: Pancreatitis Acute Dc Discharge Orders/Prescriptions Prescriptions: New amlodipine 10 mg Tablet 10 mg PO DAILY 30 Days Qty: 30 RF: 0 lisinopril 10 mg Tablet 10 mg PO DAILY 30 Days Qty: 30 RF: 0 levofloxacin 750 mg tablet 750 mg PO DAILY Qty: 5 RF: 0 Discontinued amlodipine 5 mg tablet 5 mg PO DAILY RF: 0 lisinopril-hydrochlorothiazide 10-12.5 mg tablet 1 tab PO DAILY RF: 0 Referrals / Follow Up: Jake Kim MD [Primary Care Provider] - Within 1 Week (recommend rechecking bmp in 2-3 days) Disposition Disposition (needs filled in before D/C Order can be placed): Home, Self Care
== END 2021-07-13 12:20 | disposition home or self-care (01) | DRG 282 ==
LOC: ED 22:19 → MS3 22:28
PROVIDERS: Physician Assistant; Admitting Provider Hospitalist; Emergency Provider Emergency Medicine; PCP Family Medicine; Visit Provider Student in an Organized Health Care Education/Training Program
DX: K85.20 Alcohol induced acute pancreatitis without necrosis or infection (principal); J18.9 Pneumonia, unspecified organism; J90 Pleural effusion, not elsewhere classified; K76.0 Fatty (change of) liver, not elsewhere classified; K75.89 Other specified inflammatory liver diseases; K86.89 Other specified diseases of pancreas; E87.6 Hypokalemia; R09.02 Hypoxemia; I10 Essential (primary) hypertension; Z79.899 Other long term (current) drug therapy
CPT/HCPCS: 36415; 71045; 71275; 74181; 76705; 80048; 80053; 80076; 83690; 83735; 84478; 84484; 85025; 85379; 85610; 87426; 87449; 93005; 94667; 94668; 99251; 99285; J7030; J7050; J7120; Q9967; A4216; G0463; J1940; J2405

== ENCOUNTER 2021-10-16 16:42 | Outpatient (CLI) | payer MEDICAID, SELFPAY ==
--- NOTE | 2021-10-16 16:50 | CT_ITS ---
STUDY: CT Abdomen And Pelvis W/ Contrast Injection 10/16/2021 6:39 PM REASON FOR EXAM: Female, 51 years old. ABDOMINAL PAIN pancreatitis w/ ascites TECHNIQUE: Transaxial images were obtained with oral contrast, and with Oral and amp;amp; IV Readi-CAT and amp;amp; 100mL Isovue-300 intravenous contrast. Individualized dose optimization techniques were used for this CT. COMPARISON: None. FINDINGS: The visualized lung bases are unremarkable. There is an elevated left hemidiaphragm. Normal liver. Normal gallbladder and extrahepatic biliary system. Normal spleen. There is a 14 mm hypodense lesion of the tail of the pancreas. Se 2 IM: 17. This is 42 HU. Normal bilateral adrenal glands. No acute findings of the right kidney. No acute findings of the left kidney. Normal visualized stomach. Normal small intestine. Stool throughout the colon. The appendix is visualized and appears normal. There are no acute findings of the abdominal aorta. Normal inferior vena cava. Subcentimeter mesenteric lymph nodes. Normal urinary bladder. There is an umbilical hernia containing fat. Normal osseous structures. IMPRESSION: (NOT LISTED IN ORDER OF SIGNIFICANCE) There is significant elevated left hemidiaphragm. There is a 14 mm hypodense lesion of the tail of the pancreas. This is new since the prior MRI. ACR White Paper guidelines (Rossy, et al. JACR 2017; 14(7):911-923) suggest a contrast-enhanced, pancreas-protocol abdominal CT or MR in 1 year. Resolution of the prior pneumonia. Lesions noted in the liver on the prior MRI are not clearly seen on the current CT scan. Other findings as above. Electronically Signed: Pacheco Mckeon MD at 18:45 EST , CT/Abdomen/Pelvis WITH Contrast
[2021-10-16 17:15] LABS: CREATININE FINGERSTICK 0.9 mg/dL (0.55-1.02); EGFR FINGERSTICK > 60.0000 mL/min (>60)
== END 2021-10-16 23:59 | disposition home or self-care (01) ==
LOC: CT 16:48
PROVIDERS: PCP Family Medicine; Referring Provider Nurse Practitioner Adult Health; Visit Provider Nurse Practitioner Adult Health
DX: K85.90 Acute pancreatitis without necrosis or infection, unspecified (principal)
CPT/HCPCS: 74177; Q9967; A4216

== ENCOUNTER 2021-10-19 09:29 | Outpatient (CLI) | payer MEDICAID, SELFPAY ==
--- NOTE | 2021-10-19 09:31 | US_ITS ---
STUDY: ABDOMINAL ULTRASOUND - RIGHT UPPER QUADRANT REASON FOR VISIT: Female, 51 years old Liver evaluation/elastography, fatty liver TECHNIQUE: Ultrasound evaluation of the right upper quadrant was performed with real-time and static domínugez-scale imaging. TECHNICAL QUALITY: Adequate. COMPARISON: Comparison is made with prior examination dated 07/07/2021. FINDINGS: Liver: The liver measures 15 cm. There is increased echogenicity consistent with fatty infiltration. The bile ducts are within normal limits. There is hepatic color flow. The direction of portal flow is hepatopetal. There is a 1 cm x 1 cm x 0.8 cm hemangioma in the left lobe of the liver. Gallbladder: Normal distended gallbladder. The gallbladder wall measures 2 mm. There is a negative sonographic Umana''s sign. There is no pericholecystic fluid. There are no gallstones. Findings suggestive of a 1.9 mm polyp in the anterior wall of the gallbladder. Common Bile Duct (C.B.D.): The common bile duct measures 5 mm. Pancreas: Normal size of the head, body and tail of the pancreas. There is increased echogenicity of the pancreas. There is no demonstrated pancreatic mass or cyst. Right Kidney: Normal size of the right kidney. The right kidney measures 10 cm x 5 cm x 4.5 cm. Normal renal cortex. The right cortex measures 1.1 cm. There is no demonstrated renal mass or cyst. There is no right hydronephrosis. IMPRESSION: Fatty infiltration of the liver. 1 cm x 1 cm x 0.8 cm hemangioma in the left lobe of the liver. Electronically Signed: Kwaku Ritchie MD at 10:56 EST , STUDY: ABDOMINAL ULTRASOUND - ELASTOGRAPHY REASON FOR VISIT: Female, 51 years old. Fatty infiltration of the liver. TECHNIQUE: Liver stiffness measurements were obtained on a [employer] RS 85 ultrasound machine using a CA 1-7 probe following the SRU guidelines. 3 measurements were obtained using a 2-D-SWE method. The IQR/M was 17% suggesting a quality data set. TECHNICAL QUALITY: Adequate. COMPARISON: None. FINDINGS: Liver: Fatty infiltration of the liver. Median liver stiffness measured 8.5 kPa. US/Abdomen Limited IMPRESSION: Liver stiffness measures 8.5 kPa compatible with F3 Metavir score. Electronically Signed: Kwaku Ritchie MD at 10:57 EST ,
[2021-10-19 11:58] LABS: Erythrocyte Sedimentation Rate 3 mm/hr (0-30)
[2021-10-19 12:01] LABS: Prothrombin Time (Protime)PT. 12.4 SECONDS (11.7-14.9)
[2021-10-19 12:02] LABS: Absolute Lymphocyte Count 2.24 X10^3/uL (0.83-4.51); Absolute Neutrophil Count 4.8 X10^3/uL (2.0-7.7); Basophil# 0.06 X10^3/uL; Basophil% 0.8 % (0-1); Eosinophil# 0.11 X10^3/uL; Eosinophils% 1.4 % (0-5); Hematocrit 43.6 % (37-47); Hemoglobin 14.2 g/dL (12.0-15.0); Lymphocyte # 2.24 X10^3/ul (0.83-4.51); Lymphocyte % 29.1 % (19-41); Mean Corp Hgb Conc 32.6 g/dL (32-36); Mean Corpuscular Hgb 28.4 pg (27.0-32.0); Mean Corpuscular Volume 87.2 fL (81-99); Mean Platelet Vol. 10.1 fl (6.2-12.0); Monocyte# 0.51 X10^3/uL; Monocyte% 6.6 % (0-10); NRBC Flagged by Analyzer 0 % (0-5); Neutrophil # 4.75 X10^3/uL (2.7-7.7); Neutrophil % 61.8 % (47-70); Platelet Count 331 K/mm3 (150-450); RBC Distribution Width CV 13.5 % (11.6-14.6); RBC Distribution Width SD 43.1 fl (35.1-43.9); White Blood Count 7.7 K/mm3 (4.4-11.0)
[2021-10-19 12:11] LABS: Hemoglobin A1c 5.7 % (3.8-5.6)
[2021-10-19 12:28] LABS: AST(SGOT) 24 U/L (15-37); Alanine Aminotransfer ALT/SGPT 46 U/L (13-56); Albumin, Serum 3.8 g/dL (3.2-5.0); Alkaline Phosphatase 131 U/L (45-117); Anion Gap 4 (5-15); BUN 20 mg/dL (7-18); BUN/Creat Ratio 28.9 RATIO (10-20); CRP < 2.90 mg/L (0.0-3.0); Calcium,Total 9.1 mg/dL (8.5-10.1); Chloride 107 mmol/L (98-107); Creatinine, Serum 0.69 mg/dL (0.55-1.02); EST Glomerular Filtration Rate 95 mL/min (>60); Est Glom Filt Rate - Afr Amer 114 mL/min (>60); Ferritin 90 ng/mL (8-252); Glucose 79 mg/dL (74-106); LDH 190 U/L (84-246); Potassium 4.1 mmol/L (3.5-5.1); Protein, Total 7.8 g/dL (6.4-8.2); Sodium Level 139 mmol/L (136-145)
[2021-10-19 12:50] LABS: HIV - WCH Non-Reactive (Nonreactive)
[2021-10-20 11:09] LABS: Anti-Centromere B Ab <0.2 AI (0.0-0.9); Anti-Chromatin <0.2 AI (0.0-0.9); Anti-Jo <0.2 AI (0.0-0.9); Anti-Scleroderma-70 AB <0.2 AI (0.0-0.9); RNP Ab <0.2 AI (0.0-0.9); SJOGREN'S Anti-SS-A test < 0.2 AI (0.0-0.9); SJOGREN'S Anti-SS-B test < 0.2 AI (0.0-0.9); Smith Ab <0.2 AI (0.0-0.9)
[2021-10-20 11:36] LABS: Anti-dsDNA Ab <1 IU/mL (0-9)
[2021-10-20 17:25] LABS: Anti-Mitochondrial AB <20.0 Units (0.0-20.0)
[2021-10-21 16:08] LABS: Angiotensin Convert Enzyme 25 U/L (14-82); Ceruloplasmin 19.8 mg/dL (19.0-39.0); Cytoplasmic Ab (C-ANCA) <1:20 titer (Neg:<1:20); HEPATITIS B SURFACE AG Negative (Negative); Hepatitis A IgM Antibody Negative (Negative); Hepatitis B Core AB IgM Negative (Negative)
[2021-10-21 18:19] LABS: AFP, Tumor Marker 1.4 ng/mL (0.0-8.3); Anti-Smooth Muscle ABS 3 Units (0-19); Copper, Serum or Plasma 96 ug/dL (80-158); Haptoglobin 111 mg/dL (33-346); Hep C Antibodies <0.1 s/co ratio (0.0-0.9); Perinuclear Ab (P-ANCA) <1:20 titer (Neg:<1:20)
[2021-10-22 13:36] LABS: Carbohydrate Ag 19-9 2261 25 U/mL (0-35)
== END 2021-10-19 23:59 | disposition home or self-care (01) ==
PROVIDERS: Nurse Practitioner Adult Health; PCP Family Medicine; Referring Provider Internal Medicine Gastroenterology; Visit Provider Internal Medicine Gastroenterology
DX: K76.0 Fatty (change of) liver, not elsewhere classified (principal); K86.9 Disease of pancreas, unspecified
CPT/HCPCS: 36415; 76705; 76981; 80053; 80074; 82105; 82164; 82390; 82525; 82728; 83010; 83036; 83516; 83615; 85025; 85610; 85652; 86140; 86225; 86235; 86256; 86301; 86703

== ENCOUNTER 2021-12-01 15:04 | Outpatient (CLI) | payer MEDICAID, SELFPAY | END 2021-12-01 23:59 | disposition home or self-care (01) | LOC: LABSPEC 15:06 | PROVIDERS: PCP Family Medicine; Visit Provider Family Medicine | DX: Z20.822 Contact with and (suspected) exposure to COVID-19 (principal) | CPT/HCPCS: 87635; U0003; U0005 ==

== ENCOUNTER → 2022-05-03 | Outpatient (CLI) | payer MEDICAID, SELFPAY ==
--- NOTE | 2022-05-03 08:03 | US_ITS ---
STUDY: ABDOMINAL ULTRASOUND - ELASTOGRAPHY REASON FOR VISIT: Female, 51 years old. Fatty infiltration of the liver. TECHNIQUE: Liver stiffness measurements were obtained on a [employer] RS 85 ultrasound machine using a CA 1-7 probe following the SRU guidelines. 3 measurements were obtained using a 2-D-SWE method. The IQR/M was 13% suggesting a quality data set. TECHNICAL QUALITY: Adequate. COMPARISON: Comparison is made with prior study done earlier today. FINDINGS: Liver: Fatty infiltration of the liver. Median liver stiffness measured 7.2 kPa. US/Elastography Parenchyma/Organ IMPRESSION: Liver stiffness measures 7.2 kPa compatible with F2-F3 (Mild to moderate liver fibrosis) Metavir score. Electronically Signed: Kwaku Ritchie MD at 9:31 EDT ,
--- NOTE | 2022-05-03 08:03 | US_ITS ---
STUDY: ABDOMINAL ULTRASOUND - RIGHT UPPER QUADRANT REASON FOR VISIT: Female, 51 years old . Fatty infiltration of the liver. TECHNIQUE: Ultrasound evaluation of the right upper quadrant was performed with real-time and static domínguez-scale imaging. TECHNICAL QUALITY: Adequate. COMPARISON: Comparison is made with prior examination dated 10/19/2021. FINDINGS: Liver: The liver measures 14.5 cm. There is increased echogenicity consistent with fatty infiltration. The bile ducts are within normal limits. There is hepatic color flow. The direction of portal flow is hepatopetal. Stable 1 cm x 1.3 cm x 0.7 cm echogenic nodule in the left lobe of the liver in keeping with hemangioma. Gallbladder: Normal distended gallbladder. The gallbladder wall measures 2 mm. There is a negative sonographic Umana''s sign. There is no pericholecystic fluid. There are no gallstones. Ring down artifacts is seen arising from the gallbladder wall suggestive of adenomyomatosis. Common Bile Duct (C.B.D.): The common bile duct measures 4 mm. Pancreas: Normal size of the head, body and tail of the pancreas. There is normal echogenicity of the pancreas. There is no demonstrated pancreatic mass or cyst. Right Kidney: Normal size of the right kidney. The right kidney measures 9.9 cm x 5.3 cm x 4.4 cm. Normal renal cortex. The right cortex measures 1.2 cm. There is no demonstrated renal mass or cyst. There is no right hydronephrosis. US/Abdomen Limited IMPRESSION: Fatty infiltration of the liver. Stable hemangioma in the left lobe. Findings suggestive of adenomyomatosis of the gallbladder wall. Electronically Signed: Kwaku Ritchie MD at 9:30 EDT ,
[2022-05-03 08:12] LABS: Absolute Lymphocyte Count 2.42 X10^3/uL (0.83-4.51); Absolute Neutrophil Count 5.6 X10^3/uL (2.0-7.7); Basophil# 0.06 X10^3/uL; Basophil% 0.7 % (0-1); Eosinophil# 0.18 X10^3/uL; Hemoglobin 13.1 g/dL (12.0-15.0); Lymphocyte # 2.42 X10^3/ul (0.83-4.51); Lymphocyte % 27.2 % (19-41); Mean Corpuscular Hgb 28.2 pg (27.0-32.0); Mean Corpuscular Volume 88.4 fL (81-99); Mean Platelet Vol. 9.9 fl (6.2-12.0); Monocyte# 0.66 X10^3/uL; Monocyte% 7.4 % (0-10); NRBC Flagged by Analyzer 0 % (0-5); Neutrophil # 5.55 X10^3/uL (2.7-7.7); Neutrophil % 62.5 % (47-70); Platelet Count 324 K/mm3 (150-450); RBC Distribution Width CV 13.2 % (11.6-14.6); RBC Distribution Width SD 42.8 fl (35.1-43.9); Red Blood Count 4.64 M/mm3 (4.2-5.4); White Blood Count 8.9 K/mm3 (4.4-11.0)
[2022-05-03 08:48] LABS: Hemoglobin A1c 5.6 % (3.8-5.6)
[2022-05-03 08:49] LABS: AST(SGOT) 18 U/L (15-37); Alanine Aminotransfer ALT/SGPT 32 U/L (13-56); Albumin, Serum 3.6 g/dL (3.2-5.0); Alkaline Phosphatase 115 U/L (45-117); Anion Gap 7 (5-15); BUN 24 mg/dL (7-18); BUN/Creat Ratio 34.9 RATIO (10-20); Bilirubin, Direct 0.08 mg/dL (0.00-0.30); Calcium,Total 9.3 mg/dL (8.5-10.1); Chloride 104 mmol/L (98-107); Creatinine, Serum 0.69 mg/dL (0.55-1.02); EST Glomerular Filtration Rate 95 mL/min (>60); Est Glom Filt Rate - Afr Amer 115 mL/min (>60); Globulin 3.6 g/dL (2.2-4.2); Glucose 94 mg/dL (74-106); Potassium 4.1 mmol/L (3.5-5.1); Protein, Total 7.2 g/dL (6.4-8.2); Sodium Level 138 mmol/L (136-145)
== END | disposition home or self-care (01) ==
LOC: US 07:49
PROVIDERS: PCP Family Medicine; Referring Provider Nurse Practitioner Adult Health; Visit Provider Nurse Practitioner Adult Health
DX: K76.0 Fatty (change of) liver, not elsewhere classified (principal)
CPT/HCPCS: 36415; 76705; 76981; 80053; 82248; 83036; 85025

== ENCOUNTER → 2022-11-19 | Outpatient (CLI) | payer MEDICAID, SELFPAY ==
--- NOTE | 2022-11-19 07:42 | US_ITS ---
STUDY: ABDOMINAL ULTRASOUND - ELASTOGRAPHY REASON FOR VISIT: Female, 52 years old. NAFLD TECHNIQUE: Liver stiffness measurements were obtained on a [employer] RS 85 ultrasound machine using a CA 1-7 probe following the SRU guidelines. 3 measurements were obtained using a 2-D-SWE method. TheIQR/M was 16 % suggesting a quality data set. TECHNICAL QUALITY: Adequate. COMPARISON: Comparison is made with prior study May 03, 2022. FINDINGS: Liver: There is no demonstrated mass lesion. Median liver stiffness measured 4.4 kPa. US/Elastography Parenchyma/Organ IMPRESSION: Liver stiffness measures 4.4 kPa compatible with FO (Normal) Metavir score. Electronically Signed: Kwaku Ritchie MD at 16:28 EDT ,
--- NOTE | 2022-11-19 07:42 | US_ITS ---
STUDY: ABDOMINAL ULTRASOUND - RIGHT UPPER QUADRANT REASON FOR VISIT: Female, 52 years old NAFLD TECHNIQUE: Ultrasound evaluation of the right upper quadrant was performed with real-time and static domínguez-scale imaging. TECHNICAL QUALITY: Adequate. COMPARISON: Comparison is made with prior study dated May 03, 2022. FINDINGS: Liver: The liver measures 13.1 cm. There is increased echogenicity consistent with a mild degree of fatty infiltration. The bile ducts are within normal limits. There is hepatic color flow. The direction of portal flow is hepatopetal. There is no demonstrated mass lesion. Gallbladder: Normal distended gallbladder. The gallbladder wall measures 1.3 mm. There is a negative sonographic Umana''s sign. There is no pericholecystic fluid. There is a solitary echogenic gallstone within the gallbladder. This measures 5 mm x 5 mm x 5 mm. Common Bile Duct (C.B.D.): The common bile duct measures 3.2 mm. Pancreas: Normal size of the head, body and tail of the pancreas. There is normal echogenicity of the pancreas. There is no demonstrated pancreatic mass or cyst. Right Kidney: Normal size of the right kidney. The right kidney measures 9.1 cm x 4.5 cm x 5.1 cm. Normal renal cortex. The right cortex measures 2.0 cm. There is no demonstrated renal mass or cyst. There is no right hydronephrosis. As suspect a 2 mm x 2 mm x 2 mm nonobstructive calculus. US/Abdomen Limited IMPRESSION: Fatty infiltration of the liver. Tiny gallstone measuring 5 mm x 5 mm x 5 mm. Electronically Signed: Kwaku Ritchie MD at 16:26 EDT ,
== END | disposition home or self-care (01) ==
LOC: US 07:40
PROVIDERS: Referring Provider Nurse Practitioner Adult Health; Visit Provider Nurse Practitioner Adult Health
DX: K76.0 Fatty (change of) liver, not elsewhere classified (principal); K80.20 Calculus of gallbladder without cholecystitis without obstruction
CPT/HCPCS: 76705; 76981

== ENCOUNTER → 2022-12-03 | Outpatient (CLI) | payer MEDICAID, SELFPAY ==
[2022-12-03 12:24] LABS: Erythrocyte Sedimentation Rate 2 mm/hr (0-30)
[2022-12-03 12:27] LABS: Absolute Lymphocyte Count 2.59 X10^3/uL (0.83-4.51); Basophil# 0.06 X10^3/uL; Basophil% 0.7 % (0-1); Eosinophil# 0.18 X10^3/uL; Eosinophils% 2.1 % (0-5); Hematocrit 41.4 % (37-47); Hemoglobin 13.3 g/dL (12.0-15.0); Lymphocyte # 2.59 X10^3/ul (0.83-4.51); Mean Corp Hgb Conc 32.1 g/dL (32-36); Mean Corpuscular Hgb 28.6 pg (27.0-32.0); Mean Platelet Vol. 10.2 fl (6.2-12.0); Monocyte# 0.69 X10^3/uL; NRBC Flagged by Analyzer 0 % (0-5); Neutrophil # 5.04 X10^3/uL (2.7-7.7); Neutrophil % 58.5 % (47-70); Platelet Count 286 K/mm3 (150-450); RBC Distribution Width CV 13.7 % (11.6-14.6); RBC Distribution Width SD 44.6 fl (35.1-43.9); Red Blood Count 4.65 M/mm3 (4.2-5.4); White Blood Count 8.6 K/mm3 (4.4-11.0)
[2022-12-03 12:37] LABS: Prothrombin Time (Protime)PT. 12.7 SECONDS (11.7-14.9)
[2022-12-03 13:04] LABS: AST(SGOT) 20 U/L (15-37); Alanine Aminotransfer ALT/SGPT 32 U/L (13-56); Albumin, Serum 3.5 g/dL (3.2-5.0); Alkaline Phosphatase 110 U/L (45-117); Anion Gap 4 (5-15); BUN 22 mg/dL (7-18); BUN/Creat Ratio 33.8 RATIO (10-20); CRP < 2.90 mg/L (0.0-3.0); Calcium,Total 9.2 mg/dL (8.5-10.1); Chloride 111 mmol/L (98-107); Creatinine, Serum 0.65 mg/dL (0.55-1.02); EST Glomerular Filtration Rate 101 mL/min (>60); Est Glom Filt Rate - Afr Amer 122 mL/min (>60); Globulin 3.5 g/dL (2.2-4.2); Glucose 90 mg/dL (74-106); LDH 190 U/L (84-246); Lipase 256 U/L (73-393); Potassium 3.7 mmol/L (3.5-5.1); Sodium Level 139 mmol/L (136-145)
== END | disposition home or self-care (01) ==
LOC: LAB 11:44
PROVIDERS: Referring Provider Nurse Practitioner Adult Health; Visit Provider Nurse Practitioner Adult Health
DX: K76.0 Fatty (change of) liver, not elsewhere classified (principal); Z87.19 Personal history of other diseases of the digestive system
CPT/HCPCS: 36415; 80053; 83615; 83690; 85025; 85610; 85652; 86140

== ENCOUNTER → 2025-01-01 | Outpatient (CLI) | payer OTHER, SELFPAY ==
--- NOTE | 2025-01-01 09:08 | US_ITS ---
PROCEDURE: ABD LIMITED W/ ELASTOGRAPHY 01/01/2025 REASON FOR EXAM: FATTY LIVER TECHNIQUE: Complete abdominal ultrasound gomez-scale images with color doppler. PATIENT PREPARATION: Per protocol FINDINGS: The visualized pancreas appears within limits without evidence of pancreatic ductal dilation. The liver measures 13.7 cm and appears diffusely increased in echogenicity and somewhat heterogeneous which can be seen with hepatic steatosis or other hepatocellular disease. No evidence of intrahepatic biliary ductal dilation. Hepatic color flow is present. Flow within the portal vein is hepatopetal as expected. 6 mm gallstone without gallbladder distention, wall thickening or pericholecystic free fluid. Wall measures 1-2 mm. Report of a negative sonographic Umana's sign. Findings suggest possible adenomyomatosis at the fundus of the gallbladder. CBD 4 mm The right kidney measures 9.8 x 5.3 x 4.7 cm with a cortical thickness of 1.2 cm. No right hydronephrosis or perinephric edema seen. A 4 and a 2 mm echogenic focus within the right kidney may represent nonobstructing renal stones. No free fluid seen. Liver elastography Median 3.4 kPa, 1.07 m/sec US/ABD Limited w/ Elastography IMPRESSION: The liver appears diffusely increased in echogenicity and somewhat heterogeneou s which can be seen with hepatic steatosis or other hepatocellular disease. 6 mm gallstone without gallbladder distention, wall thickening or pericholecyst ic free fluid. Findings suggest possible adenomyomatosis at the fundus of the gallbladder. Possible right nephrolithiasis as above. Liver elastography with a Metavir staging score F0. Reading Location: [id number]
[2025-01-01 09:58] LABS: Absolute Lymphocyte Count 1.71 X10^3/uL (0.83-4.51); Absolute Neutrophil Count 5.5 X10^3/uL (2.0-7.7); Basophil# 0.07 X10^3/uL; Basophil% 0.8 % (0-1); Eosinophil# 0.11 X10^3/uL; Eosinophils% 1.3 % (0-5); Hematocrit 42.8 % (37-47); Lymphocyte # 1.71 X10^3/ul (0.83-4.51); Lymphocyte % 20.6 % (19-41); Mean Corp Hgb Conc 32.7 g/dL (32-36); Mean Corpuscular Hgb 28.7 pg (27.0-32.0); Mean Corpuscular Volume 87.7 fL (81-99); Mean Platelet Vol. 10.1 fl (6.2-12.0); Monocyte# 0.93 X10^3/uL; Monocyte% 11.2 % (0-10); NRBC Flagged by Analyzer 0 % (0-5); Neutrophil # 5.46 X10^3/uL (2.7-7.7); Neutrophil % 65.6 % (47-70); Platelet Count 299 K/mm3 (150-450); RBC Distribution Width CV 13.7 % (11.6-14.6); RBC Distribution Width SD 44.2 fl (35.1-43.9); Red Blood Count 4.88 M/mm3 (4.2-5.4); White Blood Count 8.3 K/mm3 (4.4-11.0)
[2025-01-01 10:49] LABS: Hemoglobin A1c 5.7 % (<=5.6)
[2025-01-01 10:58] LABS: Cholesterol 245 mg/dL (<=200); High Density Lipoprotein 56 mg/dL; Low Density Lipoprotein Calc. 148 mg/dL; Triglycerides 205 mg/dL; Very Low Density Lipoprotein 41 mg/dL (5-40); Vitamin D,25 Hydroxy 29.7 ng/mL (30-100); cholesterol:hdl ratio screen 4.38
[2025-01-01 11:01] LABS: ALB/GLOB Ratio 1.4 RATIO (0.9-2.4); AST(SGOT) 36 U/L (<=31); Alanine Aminotransfer ALT/SGPT 16 U/L (<=34); Albumin, Serum 4.3 g/dL (3.5-5.0); Alkaline Phosphatase 123 U/L (35-104); Anion Gap 12 (5-15); BUN 14 mg/dL (4-19); BUN/Creat Ratio 18.2 RATIO (10-20); Calcium,Total 9.4 mg/dL (7.6-11.0); Carbon Dioxide 21.7 mmol/L (21.0-32.0); Chloride 105 mmol/L (98-108); Creatinine, Serum 0.79 mg/dL (0.70-1.20); EST Glomerular Filtration Rate 88 (>60); Globulin 3.1 g/dL (2.2-4.2); Glucose 102 mg/dL (70-99); Potassium 4.2 mmol/L (3.3-5.1); Protein, Total 7.4 g/dL (5.9-8.4); Sodium Level 139 mmol/L (133-145); Total Bilirubin 0.52 mg/dL (0.00-1.30)
== END | disposition home or self-care (01) ==
LOC: US 09:01
PROVIDERS: PCP Nurse Practitioner Family
DX: K76.0 Fatty (change of) liver, not elsewhere classified (principal); K85.90 Acute pancreatitis without necrosis or infection, unspecified
CPT/HCPCS: 36415; 76705; 76981; 80053; 80061; 82306; 83036; 85025